=== PATIENT | male | born 1955 | race Caucasian/White ===

== ENCOUNTER 2018-09-27 19:59 | Inpatient (IN) | payer MEDICARE, MEDICAID ==
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
[2018-09-27 20:56] LABS: % BASOPHILS 0.1 % (0.0-2.0); % EOSINOPHILS 4.9 % (0.0-5.0); % MONOCYTES 9.6 % (2.0-10.0); % NEUTROPHILS 60.4 % (40.0-80.0); EOSINOPHILE ABSOLUTE 0.4 Th/cmm (0.1-0.4); HEMATOCRIT 41.9 % (41.0-60); HEMOGLOBIN 13.9 gm/dL (12-16); LYMPHOCYTE ABSOLUTE 1.8 Th/cmm (1.5-3.0); MEAN CORPUSCULAR HEMOGLOBIN 30.2 pg (26.0-30.0); MEAN CORPUSCULAR HGB CONC 33.2 pg (28.0-36.0); MEAN PLATELET VOLUME 6.9 fl; MONOCYTE ABSOLUTE 0.7 Th/cmm (0.3-1.0); NEUTROPHILE ABSOLUTE 4.4 Th/cmm (1.8-8.0); PLATELET COUNT 235 Th/cmm (150-400); RED BLOOD COUNT 4.61 Mil/cmm (4.30-5.70); RED CELL DISTRIBUTION WIDTH 13.4 % (11.5-20.0); WHITE BLOOD COUNT 7.3 Th/cmm (4.8-10.8)
[2018-09-27 21:09] LABS: ALB/GLOB RATIO 1.4 (1.0-1.8); ALBUMIN 4.1 gm/dL (4.2-5.5); ALKALINE PHOSPHATASE 70 U/L (34-104); ANION GAP 8.9 (7.0-16.0); BILIRUBIN,TOTAL 0.2 mg/dL (0.3-1.0); BUN - UREA NITROGEN 18 mg/dL (7-25); CALCIUM SERUM 9.4 mg/dL (8.6-10.3); CARBON DIOXIDE 28.4 mEq/L (21.0-31.0); CHLORIDE 103 mEq/L (98-107); GFR AFRICAN-AMERICAN > 60.0 ml/min (>90); GFR NON AFRICAN-AMERICAN > 60.0 ml/min; GLUCOSE 100 mg/dL (70-105); POTASSIUM SERUM 3.3 mEq/L (3.5-5.1); SGOT 9 U/L (13-39); SGPT/ALT 16 U/L (7-52); SODIUM SERUM 137 mEq/L (136-145); TOTAL PROTEIN,SERUM 7.1 gm/dL (6.0-8.3)
[2018-09-27] MEDS ORDERED: Potassium Chloride 20 mEq ER Tab PO ONE ×2 (21:27→22:24)
[2018-09-28 01:11] VITALS: BP 133/70
[2018-09-28] MEDS: Escitalopram Oxalate 5 mg Tab PO SCH (08:32)
--- NOTE | 2018-09-28 08:36 | Diagnostic Imaging Report ---
CHEST X-RAY: AP view INDICATION: Shortness of breath COMPARISON: None FINDINGS: There is elevation of the right hemidiaphragm interposed loops of bowel increased right basal lung markings. No focal consolidation or effusion. Heart size is normal. Osseous structures are intact. IMPRESSION: Elevation of the right hemidiaphragm increased right basal lung markings favoring atelectatic changes. No focal consolidation identified. If indicated PA and lateral views may be obtained for further assessment.
[2018-09-28 14:26] LABS: CHOLESTEROL 142 mg/dL (<200); HDL -HIGH DENSITY LIPOPROTEIN 44 mg/dL (23-92); TRIGLYCERIDES 114 mg/dL (<150)
[2018-09-28] MEDS ORDERED: LITHIUM CARBONATE PO SCH (21:00)
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
[2018-09-29] MEDS: Escitalopram Oxalate 5 mg Tab PO SCH (08:16)
[2018-09-29] MEDS ORDERED: FISH OIL PO SCH (09:00)
[2018-09-29] MEDS ORDERED: DHA PO SCH (09:00)
[2018-09-29] MEDS ORDERED: EPA PO SCH (09:00)
[2018-09-29] MEDS ORDERED: OMEGA PO SCH (09:00)
[2018-09-29] MEDS ORDERED: Haloperidol Lactate 5 mg/mL 1mL Vial IM ONE (12:50)
[2018-09-29] MEDS ORDERED: Haloperidol Lactate 5 mg/mL 1mL Vial ONE (12:54)
--- NOTE | 2018-09-29 13:44 | History and Physical ---
History of Present Illness - HPI Chief Complaint: agitation HPI: This is a 62-year old male admitted from snf due to agitation. Vital Signs: Last Vital Signs Temp 98.2 F 09/29/18 06:32 Pulse 84 09/29/18 06:32 Resp 20 09/29/18 06:32 BP 99/66 09/29/18 06:32 Pulse Ox 98 09/29/18 06:32 Past Medical History Other History: Dyslipidemia, Hypothyroidism Family Medical History - Family Member Mother History Unknown: Yes Social History Smoke: No Alcohol: None Drugs: None Lives: Jail - Medications Home Medications: Home Medication Medication Instructions Recorded Type Atorvastatin Calcium [Lipitor] 10 mg PO HS 09/27/18 History Docusate Sodium [Colace] 250 mg PO DAILY 09/27/18 History Escitalopram Oxalate [Lexapro] 5 mg PO DAILY 09/27/18 History Levothyroxine [Synthroid] 0.112 mg PO QDAC 09/27/18 History [place] Carbonate [[place] 750 mg PO HS 09/27/18 History Carbonate ER] Multivitamin with Minerals 1 tab PO DAILY 09/27/18 History [Multivitamins with Minerals] OLANZapine [ZyPREXA] 10 mg PO TID 09/27/18 History [place]-3/Dha/Epa/Fish Oil [Fish Oil 500 mg PO DAILY 09/27/18 History 500 mg Softgel] risperiDONE [RisperDAL] 3 mg PO BID 09/27/18 History - Allergies Allergies/Adverse Reactions: Allergies Allergy/AdvReac Type Severity Reaction Status Date / Time No Known Allergies Allergy Verified 09/27/18 20:12 Review of Systems - Review of Systems Constitutional: Report: No Significant Eyes: Report: No Significant Respiratory: Report: No Significant Cardiovascular: Report: No Significant Neurological: Report: No Significant Physical Exam - Physical Exam HEENT: Report: Ears Nose Throat within normal limits Neck: Report: Within normal limits Cardiovascular Systems: Report: +s1/s2 noted, Regular, Rate and Rhythm Respiratory: Report: Breath Sounds are within normal limits, Clear to Auscultation of lung ro Abdomen: Report: Non-tender to palpation Skin: Report: Color of skin is within normal limits, Warm, Dry - Lab Results All Lab Results last 24 hours: Laboratory Results - last 24 hr 09/28/18 06:10 Triglycerides 114 Cholesterol 142 LDL Cholesterol Direct 87 HDL Cholesterol 44 - Assessment Assessment: Dyslipidemia Hypothyroidism psychosis - Plan Plan: fall precautions continue snf meds continue current plan of care
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
[2018-09-29] MEDS: Fish Oil 1,000 MG SGL PO SCH (16:17)
[2018-09-29] MEDS: Multivitamin w/ Minerals Tab PO SCH (16:17)
[2018-09-29] MEDS: Atorvastatin Calcium 10 MG TAB PO SCH (21:00)
--- NOTE | 2018-09-30 05:27 | Progress Notes ---
DATE: SUBJECTIVE: Chart reviewed and the patient interviewed. Also discussed the patient's condition with the staff and reviewed records and labs. The patient is still easily agitated and is still in irritable mood. The patient also is still angry. The patient also is still suspicious and paranoid and isolative at times. He also still has episodes of aggression. Otherwise, the patient is compliant with taking medications with no side effects of medications. ASSESSMENT: The patient is still psychotic and agitated. TREATMENT PLAN: Continue to monitor behavior and condition closely. Also, continue to work on adjusting psychotropic medications and followup. JOB# [id number]
[2018-09-30] MEDS: Levothyroxine 0.112 Mg Tab PO SCH (06:47)
[2018-09-30] MEDS: Escitalopram Oxalate 5 mg Tab PO SCH (08:35)
[2018-09-30] MEDS: Fish Oil 1,000 MG SGL PO SCH (08:36)
[2018-09-30] MEDS: Multivitamin w/ Minerals Tab PO SCH (08:36)
--- NOTE | 2018-09-30 14:02 | Internal Medicine Prog Note ---
Internal Medicine Subjective - Subjective Patient seen and examined:: chart reviewed Patient is:: awake, confused Per staff patient has:: no adverse event Internal Medicine Objective - Results Result Diagrams: 09/27/18 20:50 09/27/18 20:50 Recent Labs: Laboratory Last Values WBC 7.3 Th/cmm (4.8-10.8) 09/27/18 20:50 RBC 4.61 Mil/cmm (4.30-5.70) 09/27/18 20:50 Hgb 13.9 gm/dL (12-16) 09/27/18 20:50 Hct 41.9 % (41.0-60) 09/27/18 20:50 MCV 91.0 fl (80-99) 09/27/18 20:50 MCH 30.2 pg (26.0-30.0) H 09/27/18 20:50 MCHC Differential 33.2 pg (28.0-36.0) 09/27/18 20:50 RDW 13.4 % (11.5-20.0) 09/27/18 20:50 Plt Count 235 Th/cmm (150-400) 09/27/18 20:50 MPV 6.9 fl 09/27/18 20:50 Neutrophils % 60.4 % (40.0-80.0) 09/27/18 20:50 Lymphocytes % 25.0 % (20.0-50.0) 09/27/18 20:50 Monocytes % 9.6 % (2.0-10.0) 09/27/18 20:50 Eosinophils % 4.9 % (0.0-5.0) 09/27/18 20:50 Basophils % 0.1 % (0.0-2.0) 09/27/18 20:50 Sodium 137 mEq/L (136-145) 09/27/18 20:50 Potassium 3.3 mEq/L (3.5-5.1) L 09/27/18 20:50 Chloride 103 mEq/L (98-107) 09/27/18 20:50 Carbon Dioxide 28.4 mEq/L (21.0-31.0) 09/27/18 20:50 Anion Gap 8.9 (7.0-16.0) 09/27/18 20:50 BUN 18 mg/dL (7-25) 09/27/18 20:50 Creatinine 1.0 mg/dL (0.7-1.3) 09/27/18 20:50 Est GFR ( Amer) > 60.0 ml/min (>90) 09/27/18 20:50 Est GFR (Non-Af Amer) > 60.0 ml/min 09/27/18 20:50 BUN/Creatinine Ratio 18.0 09/27/18 20:50 Glucose 100 mg/dL (70-105) 09/27/18 20:50 Calcium 9.4 mg/dL (8.6-10.3) 09/27/18 20:50 Total Bilirubin 0.2 mg/dL (0.3-1.0) L 09/27/18 20:50 AST 9 U/L (13-39) L 09/27/18 20:50 ALT 16 U/L (7-52) 09/27/18 20:50 Alkaline Phosphatase 70 U/L (34-104) 09/27/18 20:50 Troponin I < 0.01 ng/mL (0.01-0.05) L 09/27/18 20:50 B-Natriuretic Peptide 7.7 pg/mL (5.0-100.0) 09/27/18 20:50 Total Protein 7.1 gm/dL (6.0-8.3) 09/27/18 20:50 Albumin 4.1 gm/dL (4.2-5.5) L 09/27/18 20:50 Globulin 3.0 gm/dL 09/27/18 20:50 Albumin/Globulin Ratio 1.4 (1.0-1.8) 09/27/18 20:50 Triglycerides 114 mg/dL (<150) 09/28/18 06:10 Cholesterol 142 mg/dL (<200) 09/28/18 06:10 LDL Cholesterol Direct 87 mg/dL (75-193) 09/28/18 06:10 HDL Cholesterol 44 mg/dL (23-92) 09/28/18 06:10 TSH 2.17 uIU/ml (0.34-5.60) 09/27/18 20:50 [place] 0.62 mmol/L (0.5-1.0) 09/28/18 06:10 - Physical Exam Vitals and I&O: Vital Signs Temp 97.2 F 11/09/18 06:50 Pulse 92 09/30/18 06:50 Resp 20 09/30/18 06:50 BP 123/69 09/30/18 06:50 Pulse Ox 96 09/30/18 06:50 Intake & Output 09/29/18 09/30/18 09/30/18 18:59 06:59 18:59 Intake Total 120 120 Balance 120 120 Intake: Oral 120 120 Other: # Voids 3 2 # Bowel Movements 1 Active Medications: Current Medications Atorvastatin Calcium (Lipitor) 10 mg PO HS [facility]; Protocol Stop: 11/28/18 20:59 Last Admin: 09/29/18 21:00 Dose: 10 mg Docusate Sodium (Colace) 250 mg PO DAILY [facility] Stop: 11/28/18 08:59 Last Admin: 09/30/18 08:35 Dose: 250 mg Escitalopram Oxalate (Lexapro) 5 mg PO DAILY [facility]; Protocol Stop: 11/27/18 08:59 Last Admin: 09/30/18 08:35 Dose: 5 mg Fish Oil ([place] 3) 1,000 mg PO DAILY [facility] Stop: 11/28/18 08:59 Last Admin: 09/30/18 08:36 Dose: 1,000 mg Levothyroxine Sodium (Synthroid) 0.112 mg PO QDAC [facility] Stop: 11/29/18 07:29 Last Admin: 09/30/18 06:47 Dose: 0.112 mg [place] Carbonate (Eskalith) 300 mg PO BID [facility]; Protocol Stop: 11/27/18 08:59 Last Admin: 09/30/18 08:36 Dose: 300 mg Lorazepam (Ativan) 0.5 mg PO Q4HR PRN; Protocol PRN Reason: Anxiety Stop: 10/27/18 23:29 Olanzapine (Zyprexa) 10 mg PO TID [facility]; Protocol Stop: 11/27/18 08:59 Last Admin: 09/30/18 13:35 Dose: 10 mg Risperidone (Risperdal) 3 mg PO BID [facility]; Protocol Stop: 11/27/18 08:59 Last Admin: 09/30/18 08:36 Dose: 3 mg Zolpidem Tartrate (Ambien) 5 mg PO HS PRN PRN Reason: Insomnia Stop: 11/26/18 23:29 General: alert HEENT: NC/AT Neck: Supple Lungs: CTAB Abdomen: soft, non-tender Extremities: clear Neurological: no change Internal Medicine Assmt/Plan - Assessment Assessment: hypokalemia hyperlipidemia hypothyrodism depression psychosis - Plan Plan: as per order sheet as per psych will monitor
[2018-09-30] MEDS: Atorvastatin Calcium 10 MG TAB PO SCH (20:34)
[2018-10-01] MEDS: Levothyroxine 0.112 Mg Tab PO SCH (06:37)
[2018-10-01] MEDS: Multivitamin w/ Minerals Tab PO SCH (08:55)
[2018-10-01] MEDS: Fish Oil 1,000 MG SGL PO SCH (08:55)
[2018-10-01] MEDS: Escitalopram Oxalate 5 mg Tab PO SCH (08:56)
--- NOTE | 2018-10-01 17:24 | Progress Notes ---
DATE: 10/01/2018 SUBJECTIVE: The patient was seen in his room. The patient is awake, but confused currently guarded, easily gets agitated. Episodes of behavioral outbursts. Otherwise, the patient is currently in no acute distress. OBJECTIVE: VITAL SIGNS: Temperature 98.4, heart rate 74, blood pressure 132/70, respirations 20, and 98% on room air. HEENT: Head is atraumatic and normocephalic. Eyes: Bilateral conjunctivae are clear. Bilateral pupils are equally round and reactive. NECK: Supple. No JVD. CARDIOVASCULAR: S1 and S2, without murmur. PULMONARY: Clear to auscultation. GASTROINTESTINAL: Soft and nontender without guarding. Positive bowel sounds. MUSCULOSKELETAL: No clubbing. No cyanosis noted. ASSESSMENT: 1. Schizoaffective disorder. 2. Hyperlipidemia. 3. Osteoarthritis. 4. Hypothyroidism. PLAN: We will keep the patient inpatient Psychiatric Unit. We will follow up with the psychiatrist to monitor the patient's condition and behavior. Treatment plans were discussed with the patient's nurse. Treatment plans were discussed with Dr. Arango. JOB# [id number]
[2018-10-01] MEDS: Atorvastatin Calcium 10 MG TAB PO SCH (20:25)
--- NOTE | 2018-10-02 05:48 | Progress Notes ---
DATE: 09/30/2018 SUBJECTIVE: Chart reviewed and the patient interviewed. Also discussed the patient's condition with the staff and reviewed records and labs. The patient is still restless and is still agitated. The patient also is still paranoid and suspicious and he is still having episodes of aggression over the staff. Also, still has mood swings. The patient also has difficulty following any of staff directions. On the other hand, the patient continued to comply with taking his medications with no side effects of medications. ASSESSMENT: The patient is still agitated and has mood swings and psychotic. TREATMENT PLAN: Continue to monitor medications and continue to monitor lithium. Also, we will continue Lexapro 5 mg every day. Also, working on his mood swings and irritability and the patient is taking Zyprexa 10 mg 3 times a day, which is above recommended normal level, but at the same time with agitated patient like that the patient needs close monitoring. The patient still needs a lot of redirections and needs a lot of close monitoring. JOB# [id number]
[2018-10-02] MEDS: Fish Oil 1,000 MG SGL PO SCH (08:12)
[2018-10-02] MEDS: Levothyroxine 0.112 Mg Tab PO SCH (08:12)
[2018-10-02] MEDS: Multivitamin w/ Minerals Tab PO SCH (08:12)
[2018-10-02] MEDS: Escitalopram Oxalate 5 mg Tab PO SCH (08:13)
--- NOTE | 2018-10-02 11:22 | Internal Medicine Prog Note ---
Internal Medicine Subjective - Subjective Patient seen and examined:: chart reviewed Patient is:: awake, confused, other (still agitated, irritable ) Per staff patient has:: no adverse event Internal Medicine Objective - Results Result Diagrams: 09/27/18 20:50 09/27/18 20:50 Recent Labs: Laboratory Last Values WBC 7.3 Th/cmm (4.8-10.8) 09/27/18 20:50 RBC 4.61 Mil/cmm (4.30-5.70) 09/27/18 20:50 Hgb 13.9 gm/dL (12-16) 09/27/18 20:50 Hct 41.9 % (41.0-60) 09/27/18 20:50 MCV 91.0 fl (80-99) 09/27/18 20:50 MCH 30.2 pg (26.0-30.0) H 09/27/18 20:50 MCHC Differential 33.2 pg (28.0-36.0) 09/27/18 20:50 RDW 13.4 % (11.5-20.0) 09/27/18 20:50 Plt Count 235 Th/cmm (150-400) 09/27/18 20:50 MPV 6.9 fl 09/27/18 20:50 Neutrophils % 60.4 % (40.0-80.0) 09/27/18 20:50 Lymphocytes % 25.0 % (20.0-50.0) 09/27/18 20:50 Monocytes % 9.6 % (2.0-10.0) 09/27/18 20:50 Eosinophils % 4.9 % (0.0-5.0) 09/27/18 20:50 Basophils % 0.1 % (0.0-2.0) 09/27/18 20:50 Sodium 137 mEq/L (136-145) 09/27/18 20:50 Potassium 3.3 mEq/L (3.5-5.1) L 09/27/18 20:50 Chloride 103 mEq/L (98-107) 09/27/18 20:50 Carbon Dioxide 28.4 mEq/L (21.0-31.0) 09/27/18 20:50 Anion Gap 8.9 (7.0-16.0) 09/27/18 20:50 BUN 18 mg/dL (7-25) 09/27/18 20:50 Creatinine 1.0 mg/dL (0.7-1.3) 09/27/18 20:50 Est GFR ( Amer) > 60.0 ml/min (>90) 09/27/18 20:50 Est GFR (Non-Af Amer) > 60.0 ml/min 09/27/18 20:50 BUN/Creatinine Ratio 18.0 09/27/18 20:50 Glucose 100 mg/dL (70-105) 09/27/18 20:50 Calcium 9.4 mg/dL (8.6-10.3) 09/27/18 20:50 Total Bilirubin 0.2 mg/dL (0.3-1.0) L 09/27/18 20:50 AST 9 U/L (13-39) L 09/27/18 20:50 ALT 16 U/L (7-52) 09/27/18 20:50 Alkaline Phosphatase 70 U/L (34-104) 09/27/18 20:50 Troponin I < 0.01 ng/mL (0.01-0.05) L 09/27/18 20:50 B-Natriuretic Peptide 7.7 pg/mL (5.0-100.0) 09/27/18 20:50 Total Protein 7.1 gm/dL (6.0-8.3) 09/27/18 20:50 Albumin 4.1 gm/dL (4.2-5.5) L 09/27/18 20:50 Globulin 3.0 gm/dL 09/27/18 20:50 Albumin/Globulin Ratio 1.4 (1.0-1.8) 09/27/18 20:50 Triglycerides 114 mg/dL (<150) 09/28/18 06:10 Cholesterol 142 mg/dL (<200) 09/28/18 06:10 LDL Cholesterol Direct 87 mg/dL (75-193) 09/28/18 06:10 HDL Cholesterol 44 mg/dL (23-92) 09/28/18 06:10 TSH 2.17 uIU/ml (0.34-5.60) 09/27/18 20:50 [place] 0.62 mmol/L (0.5-1.0) 09/28/18 06:10 - Physical Exam Vitals and I&O: Vital Signs Temp 98.6 F 10/02/18 06:42 Pulse 109 10/02/18 06:42 Resp 20 10/02/18 06:42 BP 112/68 10/02/18 06:42 Pulse Ox 98 10/02/18 06:42 Intake & Output 10/01/18 10/02/18 10/02/18 18:59 06:59 18:59 Intake Total 240 Balance 240 Intake: Oral 240 Other: # Voids 1 Active Medications: Current Medications Atorvastatin Calcium (Lipitor) 10 mg PO HS [facility]; Protocol Stop: 11/28/18 20:59 Last Admin: 10/01/18 20:25 Dose: 10 mg Docusate Sodium (Colace) 250 mg PO DAILY [facility] Stop: 11/28/18 08:59 Last Admin: 10/02/18 08:13 Dose: 250 mg Escitalopram Oxalate (Lexapro) 5 mg PO DAILY [facility]; Protocol Stop: 11/27/18 08:59 Last Admin: 10/02/18 08:13 Dose: 5 mg Fish Oil ([place] 3) 1,000 mg PO DAILY [facility] Stop: 11/28/18 08:59 Last Admin: 10/02/18 08:12 Dose: 1,000 mg Levothyroxine Sodium (Synthroid) 0.112 mg PO QDAC [facility] Stop: 11/29/18 07:29 Last Admin: 10/02/18 08:12 Dose: 0.112 mg [place] Carbonate (Eskalith) 300 mg PO BID [facility]; Protocol Stop: 11/27/18 08:59 Last Admin: 10/02/18 08:13 Dose: 300 mg Lorazepam (Ativan) 0.5 mg PO Q4HR PRN; Protocol PRN Reason: Anxiety Stop: 10/27/18 23:29 Olanzapine (Zyprexa) 10 mg PO TID [facility]; Protocol Stop: 11/27/18 08:59 Last Admin: 10/02/18 08:13 Dose: 10 mg Risperidone (Risperdal) 3 mg PO BID [facility]; Protocol Stop: 11/27/18 08:59 Last Admin: 10/02/18 08:12 Dose: 3 mg Zolpidem Tartrate (Ambien) 5 mg PO HS PRN PRN Reason: Insomnia Stop: 11/26/18 23:29 General: alert HEENT: NC/AT Neck: Supple Lungs: CTAB Abdomen: soft, non-tender Extremities: clear Neurological: no change Internal Medicine Assmt/Plan - Assessment Assessment: hypokalemia hyperlipidemia hypothyrodism depression psychosis - Plan Plan: as per order sheet as per psych will monitor Nutritional Asmnt/Malnutr-PDOC - Dietary Evaluation Malnutrition Findings (Please click <Entered> for more info): Nutritional Asmnt/Malnutrition Start: 09/30/18 14: 22 Text: Status: Complete Freq: Protocol: Document 09/30/18 14:22 CAL (Rec: 09/30/18 14:45 [email or web address]) Nutritional Asmnt/Malnutrition Patient General Information Nutritional Screening Moderate Risk Diagnosis psychosis, schizophrenia Pertinent Medical Hx/Surgical Hx dyslipidemia, hypothyroidism, depression, schizophrenia Subjective Information Spoke w/ pt who states his food is good and has no preferences. Pt was alert and oriented. Nursing noted PO intake: 100%. Current Diet Order/ Nutrition Support regular, low cholesterol Pertinent Medications lipitor, colace, omega 3, synthroid, risperdal Pertinent Labs 13/05: K 3.3, Alb 4.1, glucose 100 Nutritional Hx/Data Height 1.63 m Height (Calculated Centimeters) 162.6 Current Weight (lbs) 68.039 kg Weight (Calculated Kilograms) 68.0 Weight (Calculated Grams) 32766.9 [place] Body Weight 130 lb Body Mass Index (BMI) 25.7 Weight Status Overweight GI Symptoms GI Symptoms None Last BM 09/29 Difficult in: None Food Allergies No Skin Integrity/Comment: intact, seth 20 Current %PO Good (75-100%) Estimated Nutritional Goals BEE in Kcals: Using Current wt Calories/Kcals/Kg 23-27 Kcals Calculated 2252-3818 Protein: Using Current wt Protein g/k.8 Protein Calculated 68 g Fluid: ml 2637-9365 (1 ml/kcal) Nutritional Problem No current Nutrition Prob Problem no nutrition dx at this time Malnutrition Alert Is there a minimum of two criteria No selected? Query Text:Check all the applicable criteria. A minimum of two criteria are recommended for diagnosis of either severe or non-severe malnutrition. Malnutrition Related to Morbid Obesity Malnutrition related to morbid obesity No Intervention/Recommendation Comments 1. Continue with regular, low cholesterol diet as ordered 2. Monitor PO intake, wt, labs and skin integrity 3. F/U as low risk in 7 days, 10/07 Expected Outcomes/Goals Expected Outcomes/Goals 1. PO intake to meet at least 75% of all meals 2. Wt stability, skin to remain intact, and nutrition related labs to approach normal limits Reviewed by Lucy Quintanilla RD
--- NOTE | 2018-10-02 13:19 | Progress Notes ---
DATE: 10/01/2018 SUBJECTIVE: The patient was seen and evaluated. The patient's chart reviewed. Covering for Dr. Brand. IDENTIFYING DATA: A 62-year-old male who was brought in here from [facility] after the patient presenting more irritable, agitated, was exhibiting sexually inappropriate behavior, and pacing. The nursing staff reported the patient continues to be easily preoccupied and hypersexual and upon approach he at times is easily agitated. Today on [id number] evaluation, the patient reports everything is fine and refuses to be interviewed. CURRENT MEDICATIONS: Review include Lexapro 5 mg a day, levothyroxine, lithium at 300 p.o. b.i.d., olanzapine 10 mg t.i.d., risperidone 3 mg b.i.d. He denies any complications or side effects of medications. PLAN: The patient continues to be hypersexual, on 2 different antipsychotics with poor efficacy. We will continue with primary psychiatrist's treatment plan and goals and obtain more collateral and baseline information in regard to his treatments, especially with the 2 antipsychotics. JOB# [id number]
[2018-10-02] MEDS: Atorvastatin Calcium 10 MG TAB PO SCH (21:00)
--- NOTE | 2018-10-03 06:07 | Progress Notes ---
DATE: 10/02/2018 SUBJECTIVE: The patient was seen and evaluated. The patient's chart reviewed. Today on [id number] evaluation, the patient is being easily irritable and easily agitated, had a lot of mood swings and nursing staff reports that the patient continues to be hypersexual, although compliant with medications and denies side effects of medications. ASSESSMENT AND PLAN: History of easily agitated with mood swings and ____. We will continue with the current medication regimen of Zyprexa and Lexapro to target the patient's ongoing labile and irritable state and to continue to targeting the patient's disorganized state. JOB# [id number]
[2018-10-03] MEDS: Levothyroxine 0.112 Mg Tab PO SCH (06:53)
[2018-10-03] MEDS: Multivitamin w/ Minerals Tab PO SCH (08:57)
[2018-10-03] MEDS: Escitalopram Oxalate 5 mg Tab PO SCH (08:57)
[2018-10-03] MEDS: Fish Oil 1,000 MG SGL PO SCH (08:57)
--- NOTE | 2018-10-03 10:28 | Internal Medicine Prog Note ---
Internal Medicine Subjective - Subjective Patient seen and examined:: chart reviewed Patient is:: awake, confused, other (irritable ) Per staff patient has:: no adverse event Internal Medicine Objective - Results Result Diagrams: 09/27/18 20:50 09/27/18 20:50 Recent Labs: Laboratory Last Values WBC 7.3 Th/cmm (4.8-10.8) 09/27/18 20:50 RBC 4.61 Mil/cmm (4.30-5.70) 09/27/18 20:50 Hgb 13.9 gm/dL (12-16) 09/27/18 20:50 Hct 41.9 % (41.0-60) 09/27/18 20:50 MCV 91.0 fl (80-99) 09/27/18 20:50 MCH 30.2 pg (26.0-30.0) H 09/27/18 20:50 MCHC Differential 33.2 pg (28.0-36.0) 09/27/18 20:50 RDW 13.4 % (11.5-20.0) 09/27/18 20:50 Plt Count 235 Th/cmm (150-400) 09/27/18 20:50 MPV 6.9 fl 09/27/18 20:50 Neutrophils % 60.4 % (40.0-80.0) 09/27/18 20:50 Lymphocytes % 25.0 % (20.0-50.0) 09/27/18 20:50 Monocytes % 9.6 % (2.0-10.0) 09/27/18 20:50 Eosinophils % 4.9 % (0.0-5.0) 09/27/18 20:50 Basophils % 0.1 % (0.0-2.0) 09/27/18 20:50 Sodium 137 mEq/L (136-145) 09/27/18 20:50 Potassium 3.3 mEq/L (3.5-5.1) L 09/27/18 20:50 Chloride 103 mEq/L (98-107) 09/27/18 20:50 Carbon Dioxide 28.4 mEq/L (21.0-31.0) 09/27/18 20:50 Anion Gap 8.9 (7.0-16.0) 09/27/18 20:50 BUN 18 mg/dL (7-25) 09/27/18 20:50 Creatinine 1.0 mg/dL (0.7-1.3) 09/27/18 20:50 Est GFR ( Amer) > 60.0 ml/min (>90) 09/27/18 20:50 Est GFR (Non-Af Amer) > 60.0 ml/min 09/27/18 20:50 BUN/Creatinine Ratio 18.0 09/27/18 20:50 Glucose 100 mg/dL (70-105) 09/27/18 20:50 Calcium 9.4 mg/dL (8.6-10.3) 09/27/18 20:50 Total Bilirubin 0.2 mg/dL (0.3-1.0) L 09/27/18 20:50 AST 9 U/L (13-39) L 09/27/18 20:50 ALT 16 U/L (7-52) 09/27/18 20:50 Alkaline Phosphatase 70 U/L (34-104) 09/27/18 20:50 Troponin I < 0.01 ng/mL (0.01-0.05) L 09/27/18 20:50 B-Natriuretic Peptide 7.7 pg/mL (5.0-100.0) 09/27/18 20:50 Total Protein 7.1 gm/dL (6.0-8.3) 09/27/18 20:50 Albumin 4.1 gm/dL (4.2-5.5) L 09/27/18 20:50 Globulin 3.0 gm/dL 09/27/18 20:50 Albumin/Globulin Ratio 1.4 (1.0-1.8) 09/27/18 20:50 Triglycerides 114 mg/dL (<150) 09/28/18 06:10 Cholesterol 142 mg/dL (<200) 09/28/18 06:10 LDL Cholesterol Direct 87 mg/dL (75-193) 09/28/18 06:10 HDL Cholesterol 44 mg/dL (23-92) 09/28/18 06:10 TSH 2.17 uIU/ml (0.34-5.60) 09/27/18 20:50 [place] 0.62 mmol/L (0.5-1.0) 09/28/18 06:10 - Physical Exam Vitals and I&O: Vital Signs Temp 98.1 F 10/03/18 06:48 Pulse 71 10/03/18 06:48 Resp 20 10/03/18 06:48 BP 115/74 10/03/18 06:48 Pulse Ox 97 10/03/18 06:48 Intake & Output 10/02/18 10/03/18 10/03/18 18:59 06:59 18:59 Intake Total 240 Balance 240 Intake: Oral 240 Other: # Voids 3 # Bowel Movements 1 0 Active Medications: Current Medications Atorvastatin Calcium (Lipitor) 10 mg PO HS [facility]; Protocol Stop: 11/28/18 20:59 Last Admin: 10/02/18 21:00 Dose: 10 mg Docusate Sodium (Colace) 250 mg PO DAILY [facility] Stop: 11/28/18 08:59 Last Admin: 10/03/18 08:57 Dose: 250 mg Escitalopram Oxalate (Lexapro) 5 mg PO DAILY [facility]; Protocol Stop: 11/27/18 08:59 Last Admin: 10/03/18 08:57 Dose: 5 mg Fish Oil ([place] 3) 1,000 mg PO DAILY [facility] Stop: 11/28/18 08:59 Last Admin: 10/03/18 08:57 Dose: 1,000 mg Levothyroxine Sodium (Synthroid) 0.112 mg PO QDAC [facility] Stop: 11/29/18 07:29 Last Admin: 10/03/18 06:53 Dose: 0.112 mg [place] Carbonate (Eskalith) 300 mg PO BID [facility]; Protocol Stop: 11/27/18 08:59 Last Admin: 10/03/18 08:58 Dose: 300 mg Lorazepam (Ativan) 0.5 mg PO Q4HR PRN; Protocol PRN Reason: Anxiety Stop: 10/27/18 23:29 Last Admin: 10/03/18 08:58 Dose: 0.5 mg Olanzapine (Zyprexa) 10 mg PO TID [facility]; Protocol Stop: 11/27/18 08:59 Last Admin: 10/03/18 08:57 Dose: 10 mg Risperidone (Risperdal) 3 mg PO BID [facility]; Protocol Stop: 11/27/18 08:59 Last Admin: 10/03/18 08:57 Dose: 3 mg Zolpidem Tartrate (Ambien) 5 mg PO HS PRN PRN Reason: Insomnia Stop: 11/26/18 23:29 General: alert HEENT: NC/AT Neck: Supple Lungs: CTAB Abdomen: soft, non-tender Extremities: clear Neurological: no change Internal Medicine Assmt/Plan - Assessment Assessment: hypokalemia hyperlipidemia hypothyrodism depression psychosis - Plan Plan: as per order sheet as per psych will monitor Nutritional Asmnt/Malnutr-PDOC - Dietary Evaluation Malnutrition Findings (Please click <Entered> for more info): Nutritional Asmnt/Malnutrition Start: 09/30/18 14: 22 Text: Status: Complete Freq: Protocol: Document 09/30/18 14:22 ROSENDAROXANA (Rec: 09/30/18 14:45 [email or web address]) Nutritional Asmnt/Malnutrition Patient General Information Nutritional Screening Moderate Risk Diagnosis psychosis, schizophrenia Pertinent Medical Hx/Surgical Hx dyslipidemia, hypothyroidism, depression, schizophrenia Subjective Information Spoke w/ pt who states his food is good and has no preferences. Pt was alert and oriented. Nursing noted PO intake: 100%. Current Diet Order/ Nutrition Support regular, low cholesterol Pertinent Medications lipitor, colace, omega 3, synthroid, risperdal Pertinent Labs 13/05: K 3.3, Alb 4.1, glucose 100 Nutritional Hx/Data Height 1.63 m Height (Calculated Centimeters) 162.6 Current Weight (lbs) 68.039 kg Weight (Calculated Kilograms) 68.0 Weight (Calculated Grams) 66956.9 [place] Body Weight 130 lb Body Mass Index (BMI) 25.7 Weight Status Overweight GI Symptoms GI Symptoms None Last BM 09/29 Difficult in: None Food Allergies No Skin Integrity/Comment: intact, seth 20 Current %PO Good (75-100%) Estimated Nutritional Goals BEE in Kcals: Using Current wt Calories/Kcals/Kg 23-27 Kcals Calculated 3624-8204 Protein: Using Current wt Protein g/k.8 Protein Calculated 68 g Fluid: ml 0595-0319 (1 ml/kcal) Nutritional Problem No current Nutrition Prob Problem no nutrition dx at this time Malnutrition Alert Is there a minimum of two criteria No selected? Query Text:Check all the applicable criteria. A minimum of two criteria are recommended for diagnosis of either severe or non-severe malnutrition. Malnutrition Related to Morbid Obesity Malnutrition related to morbid obesity No Intervention/Recommendation Comments 1. Continue with regular, low cholesterol diet as ordered 2. Monitor PO intake, wt, labs and skin integrity 3. F/U as low risk in 7 days, 10/07 Expected Outcomes/Goals Expected Outcomes/Goals 1. PO intake to meet at least 75% of all meals 2. Wt stability, skin to remain intact, and nutrition related labs to approach normal limits Reviewed by Lucy Quintanilla RD
[2018-10-03] MEDS: Atorvastatin Calcium 10 MG TAB PO SCH (20:43)
--- NOTE | 2018-10-04 06:39 | Progress Notes ---
DATE: SUBJECTIVE: Chart reviewed and the patient interviewed. Also discussed the patient's condition with the staff and reviewed records and labs. The patient is still in angry and in irritable mood. The patient also is still easily agitated. The patient also is restless and he still has difficulty with his mood. Otherwise, decreased sexual inappropriate behavior and the patient is easier to follow directions. ASSESSMENT: The patient is calmer, but he still has difficulty with his mood. TREATMENT PLAN: Continue monitoring his behavior and his condition closely and also continue to work on his irritability and continue to follow up. JOB# [id number]
[2018-10-04] MEDS: Levothyroxine 0.112 Mg Tab PO SCH (06:47)
[2018-10-04] MEDS: Fish Oil 1,000 MG SGL PO SCH (08:58)
[2018-10-04] MEDS: Multivitamin w/ Minerals Tab PO SCH (08:58)
[2018-10-04] MEDS: Escitalopram Oxalate 5 mg Tab PO SCH (08:58)
[2018-10-04] MEDS: Triple Antibiotic 0.94 gm Pkt TP SCH (08:59)
--- NOTE | 2018-10-04 12:44 | Internal Medicine Prog Note ---
Internal Medicine Subjective - Subjective Service Date: 10/04/18 Patient is:: awake, confused, other (irritable ) Per staff patient has:: no adverse event Internal Medicine Objective - Results Result Diagrams: 09/27/18 20:50 09/27/18 20:50 Recent Labs: Laboratory Last Values WBC 7.3 Th/cmm (4.8-10.8) 09/27/18 20:50 RBC 4.61 Mil/cmm (4.30-5.70) 09/27/18 20:50 Hgb 13.9 gm/dL (12-16) 09/27/18 20:50 Hct 41.9 % (41.0-60) 09/27/18 20:50 MCV 91.0 fl (80-99) 09/27/18 20:50 MCH 30.2 pg (26.0-30.0) H 09/27/18 20:50 MCHC Differential 33.2 pg (28.0-36.0) 09/27/18 20:50 RDW 13.4 % (11.5-20.0) 09/27/18 20:50 Plt Count 235 Th/cmm (150-400) 09/27/18 20:50 MPV 6.9 fl 09/27/18 20:50 Neutrophils % 60.4 % (40.0-80.0) 09/27/18 20:50 Lymphocytes % 25.0 % (20.0-50.0) 09/27/18 20:50 Monocytes % 9.6 % (2.0-10.0) 09/27/18 20:50 Eosinophils % 4.9 % (0.0-5.0) 09/27/18 20:50 Basophils % 0.1 % (0.0-2.0) 09/27/18 20:50 Sodium 137 mEq/L (136-145) 09/27/18 20:50 Potassium 3.3 mEq/L (3.5-5.1) L 09/27/18 20:50 Chloride 103 mEq/L (98-107) 09/27/18 20:50 Carbon Dioxide 28.4 mEq/L (21.0-31.0) 09/27/18 20:50 Anion Gap 8.9 (7.0-16.0) 09/27/18 20:50 BUN 18 mg/dL (7-25) 09/27/18 20:50 Creatinine 1.0 mg/dL (0.7-1.3) 09/27/18 20:50 Est GFR ( Amer) > 60.0 ml/min (>90) 09/27/18 20:50 Est GFR (Non-Af Amer) > 60.0 ml/min 09/27/18 20:50 BUN/Creatinine Ratio 18.0 09/27/18 20:50 Glucose 100 mg/dL (70-105) 09/27/18 20:50 Calcium 9.4 mg/dL (8.6-10.3) 09/27/18 20:50 Total Bilirubin 0.2 mg/dL (0.3-1.0) L 09/27/18 20:50 AST 9 U/L (13-39) L 09/27/18 20:50 ALT 16 U/L (7-52) 09/27/18 20:50 Alkaline Phosphatase 70 U/L (34-104) 09/27/18 20:50 Troponin I < 0.01 ng/mL (0.01-0.05) L 09/27/18 20:50 B-Natriuretic Peptide 7.7 pg/mL (5.0-100.0) 09/27/18 20:50 Total Protein 7.1 gm/dL (6.0-8.3) 09/27/18 20:50 Albumin 4.1 gm/dL (4.2-5.5) L 09/27/18 20:50 Globulin 3.0 gm/dL 09/27/18 20:50 Albumin/Globulin Ratio 1.4 (1.0-1.8) 09/27/18 20:50 Triglycerides 114 mg/dL (<150) 09/28/18 06:10 Cholesterol 142 mg/dL (<200) 09/28/18 06:10 LDL Cholesterol Direct 87 mg/dL (75-193) 09/28/18 06:10 HDL Cholesterol 44 mg/dL (23-92) 09/28/18 06:10 TSH 2.17 uIU/ml (0.34-5.60) 09/27/18 20:50 [place] 0.62 mmol/L (0.5-1.0) 09/28/18 06:10 - Physical Exam Vitals and I&O: Vital Signs Temp 97.5 F 10/04/18 06:39 Pulse 59 10/04/18 06:39 Resp 18 10/04/18 06:39 BP 114/60 10/04/18 06:39 Pulse Ox 96 10/04/18 06:39 Intake & Output 10/03/18 10/04/18 10/04/18 18:59 06:59 18:59 Intake Total 180 Balance 180 Intake: Oral 180 Other: # Voids 3 # Bowel Movements 1 0 Active Medications: Current Medications Atorvastatin Calcium (Lipitor) 10 mg PO HS [facility]; Protocol Stop: 11/28/18 20:59 Last Admin: 10/03/18 20:43 Dose: 10 mg Docusate Sodium (Colace) 250 mg PO DAILY [facility] Stop: 11/28/18 08:59 Last Admin: 10/04/18 08:58 Dose: 250 mg Escitalopram Oxalate (Lexapro) 10 mg PO DAILY [facility]; Protocol Stop: 12/04/18 08:59 Fish Oil ([place] 3) 1,000 mg PO DAILY [facility] Stop: 11/28/18 08:59 Last Admin: 10/04/18 08:58 Dose: 1,000 mg Levothyroxine Sodium (Synthroid) 0.112 mg PO QDAC [facility] Stop: 11/29/18 07:29 Last Admin: 10/04/18 06:47 Dose: 0.112 mg [place] Carbonate (Eskalith) 300 mg PO BID [facility]; Protocol Stop: 11/27/18 08:59 Last Admin: 10/04/18 09:00 Dose: 300 mg Lorazepam (Ativan) 0.5 mg PO Q4HR PRN; Protocol PRN Reason: Anxiety Stop: 10/27/18 23:29 Last Admin: 10/03/18 08:58 Dose: 0.5 mg Neomycin/Polymyxin/Bacitracin (Triple Antibiotic Pkt) 1 pkt TP DAILY [facility] Stop: 12/03/18 08:59 Last Admin: 10/04/18 08:59 Dose: 1 pkt Olanzapine (Zyprexa) 10 mg PO TID [facility]; Protocol Stop: 11/27/18 08:59 Last Admin: 10/04/18 08:58 Dose: 10 mg Risperidone (Risperdal) 3 mg PO BID [facility]; Protocol Stop: 11/27/18 08:59 Last Admin: 10/04/18 08:58 Dose: 3 mg Zolpidem Tartrate (Ambien) 5 mg PO HS PRN PRN Reason: Insomnia Stop: 11/26/18 23:29 General: alert HEENT: NC/AT Neck: Supple Lungs: CTAB Abdomen: soft, non-tender Extremities: clear Neurological: no change Internal Medicine Assmt/Plan - Assessment Assessment: Dyslipidemia Hypothyroidism psychosis - Plan Plan: fall precautions continue snf meds continue current plan of care Nutritional Asmnt/Malnutr-PDOC - Dietary Evaluation Malnutrition Findings (Please click <Entered> for more info): Nutritional Asmnt/Malnutrition Start: 09/30/18 14: 22 Text: Status: Complete Freq: Protocol: Document 09/30/18 14:22 ROSENDAROXANA (Rec: 09/30/18 14:45 [email or web address]) Nutritional Asmnt/Malnutrition Patient General Information Nutritional Screening Moderate Risk Diagnosis psychosis, schizophrenia Pertinent Medical Hx/Surgical Hx dyslipidemia, hypothyroidism, depression, schizophrenia Subjective Information Spoke w/ pt who states his food is good and has no preferences. Pt was alert and oriented. Nursing noted PO intake: 100%. Current Diet Order/ Nutrition Support regular, low cholesterol Pertinent Medications lipitor, colace, omega 3, synthroid, risperdal Pertinent Labs 13/05: K 3.3, Alb 4.1, glucose 100 Nutritional Hx/Data Height 5 ft 4 in Height (Calculated Centimeters) 162.6 Current Weight (lbs) 150 lb Weight (Calculated Kilograms) 68.0 Weight (Calculated Grams) 05603.9 [place] Body Weight 130 lb Body Mass Index (BMI) 25.7 Weight Status Overweight GI Symptoms GI Symptoms None Last BM 09/29 Difficult in: None Food Allergies No Skin Integrity/Comment: intact, seth 20 Current %PO Good (75-100%) Estimated Nutritional Goals BEE in Kcals: Using Current wt Calories/Kcals/Kg 23-27 Kcals Calculated 8478-9266 Protein: Using Current wt Protein g/k.8 Protein Calculated 68 g Fluid: ml 6403-2776 (1 ml/kcal) Nutritional Problem No current Nutrition Prob Problem no nutrition dx at this time Malnutrition Alert Is there a minimum of two criteria No selected? Query Text:Check all the applicable criteria. A minimum of two criteria are recommended for diagnosis of either severe or non-severe malnutrition. Malnutrition Related to Morbid Obesity Malnutrition related to morbid obesity No Intervention/Recommendation Comments 1. Continue with regular, low cholesterol diet as ordered 2. Monitor PO intake, wt, labs and skin integrity 3. F/U as low risk in 7 days, 10/07 Expected Outcomes/Goals Expected Outcomes/Goals 1. PO intake to meet at least 75% of all meals 2. Wt stability, skin to remain intact, and nutrition related labs to approach normal limits Reviewed by Lucy Quintanilla RD
[2018-10-04] MEDS ORDERED: Haloperidol Lactate 5 mg/mL 1mL Vial IM STA ×2 (13:55→14:22)
[2018-10-04] MEDS ORDERED: Haloperidol Lactate 5 mg/mL 1mL Vial ONE (13:58)
--- NOTE | 2018-10-04 16:06 | Progress Notes ---
DATE: 10/04/2018 Case was discussed with staff of the patient, reviewed records. Covering for Dr. Brand. This is a 62-year-old male who was admitted on 09/27/2018. He was sexually inappropriate, irritable, and transferred from [facility] because of irritability, agitation, exhibiting sexual inappropriate behavior. He has been pacing, needing a lot of redirection with a history of schizoaffective disorder as well as history of hypothyroidism and hypercholesterolemia. He ____ isolating himself. He is on lithium 300 mg twice a day, Lexapro 5 mg daily, and olanzapine 10 mg 3 times a day, Risperdal 3 mg twice a day. No side effects, no sedation, and no extrapyramidal symptoms. I will be increasing his Lexapro dose to 10 mg a day. We will continue to work with the patient in group therapy, milieu therapy, or adjusting medication as needed. JOB# [id number]
[2018-10-04] MEDS: Atorvastatin Calcium 10 MG TAB PO SCH (20:41)
[2018-10-05] MEDS: Levothyroxine 0.112 Mg Tab PO SCH (06:41)
[2018-10-05] MEDS: Fish Oil 1,000 MG SGL PO SCH (09:26)
[2018-10-05] MEDS: Multivitamin w/ Minerals Tab PO SCH (09:26)
[2018-10-05] MEDS: Triple Antibiotic 0.94 gm Pkt TP SCH (09:27)
--- NOTE | 2018-10-05 14:10 | Internal Medicine Prog Note ---
Internal Medicine Subjective - Subjective Patient seen and examined:: chart reviewed Patient is:: awake, other (irritable ) Per staff patient has:: no adverse event Internal Medicine Objective - Results Result Diagrams: 09/27/18 20:50 09/27/18 20:50 Recent Labs: Laboratory Last Values WBC 7.3 Th/cmm (4.8-10.8) 09/27/18 20:50 RBC 4.61 Mil/cmm (4.30-5.70) 09/27/18 20:50 Hgb 13.9 gm/dL (12-16) 09/27/18 20:50 Hct 41.9 % (41.0-60) 09/27/18 20:50 MCV 91.0 fl (80-99) 09/27/18 20:50 MCH 30.2 pg (26.0-30.0) H 09/27/18 20:50 MCHC Differential 33.2 pg (28.0-36.0) 09/27/18 20:50 RDW 13.4 % (11.5-20.0) 09/27/18 20:50 Plt Count 235 Th/cmm (150-400) 09/27/18 20:50 MPV 6.9 fl 09/27/18 20:50 Neutrophils % 60.4 % (40.0-80.0) 09/27/18 20:50 Lymphocytes % 25.0 % (20.0-50.0) 09/27/18 20:50 Monocytes % 9.6 % (2.0-10.0) 09/27/18 20:50 Eosinophils % 4.9 % (0.0-5.0) 09/27/18 20:50 Basophils % 0.1 % (0.0-2.0) 09/27/18 20:50 Sodium 137 mEq/L (136-145) 09/27/18 20:50 Potassium 3.3 mEq/L (3.5-5.1) L 09/27/18 20:50 Chloride 103 mEq/L (98-107) 09/27/18 20:50 Carbon Dioxide 28.4 mEq/L (21.0-31.0) 09/27/18 20:50 Anion Gap 8.9 (7.0-16.0) 09/27/18 20:50 BUN 18 mg/dL (7-25) 09/27/18 20:50 Creatinine 1.0 mg/dL (0.7-1.3) 09/27/18 20:50 Est GFR ( Amer) > 60.0 ml/min (>90) 09/27/18 20:50 Est GFR (Non-Af Amer) > 60.0 ml/min 09/27/18 20:50 BUN/Creatinine Ratio 18.0 09/27/18 20:50 Glucose 100 mg/dL (70-105) 09/27/18 20:50 Calcium 9.4 mg/dL (8.6-10.3) 09/27/18 20:50 Total Bilirubin 0.2 mg/dL (0.3-1.0) L 09/27/18 20:50 AST 9 U/L (13-39) L 09/27/18 20:50 ALT 16 U/L (7-52) 09/27/18 20:50 Alkaline Phosphatase 70 U/L (34-104) 09/27/18 20:50 Troponin I < 0.01 ng/mL (0.01-0.05) L 09/27/18 20:50 B-Natriuretic Peptide 7.7 pg/mL (5.0-100.0) 09/27/18 20:50 Total Protein 7.1 gm/dL (6.0-8.3) 09/27/18 20:50 Albumin 4.1 gm/dL (4.2-5.5) L 09/27/18 20:50 Globulin 3.0 gm/dL 09/27/18 20:50 Albumin/Globulin Ratio 1.4 (1.0-1.8) 09/27/18 20:50 Triglycerides 114 mg/dL (<150) 09/28/18 06:10 Cholesterol 142 mg/dL (<200) 09/28/18 06:10 LDL Cholesterol Direct 87 mg/dL (75-193) 09/28/18 06:10 HDL Cholesterol 44 mg/dL (23-92) 09/28/18 06:10 TSH 2.17 uIU/ml (0.34-5.60) 09/27/18 20:50 [place] 0.62 mmol/L (0.5-1.0) 09/28/18 06:10 - Physical Exam Vitals and I&O: Vital Signs Temp 98.4 F 10/05/18 05:06 Pulse 74 10/05/18 05:06 Resp 19 10/05/18 05:06 BP 101/70 10/05/18 05:06 Pulse Ox 94 10/05/18 05:06 Intake & Output 10/04/18 10/05/18 10/05/18 18:59 06:59 18:59 Intake Total 480 Balance 480 Intake: Oral 480 Other: # Voids 2 Active Medications: Current Medications Atorvastatin Calcium (Lipitor) 10 mg PO HS [facility]; Protocol Stop: 11/28/18 20:59 Last Admin: 10/04/18 20:41 Dose: 10 mg Docusate Sodium (Colace) 250 mg PO DAILY [facility] Stop: 11/28/18 08:59 Last Admin: 10/05/18 09:26 Dose: 250 mg Escitalopram Oxalate (Lexapro) 10 mg PO DAILY [facility]; Protocol Stop: 12/04/18 08:59 Last Admin: 10/05/18 09:26 Dose: 10 mg Fish Oil ([place] 3) 1,000 mg PO DAILY [facility] Stop: 11/28/18 08:59 Last Admin: 10/05/18 09:26 Dose: 1,000 mg Levothyroxine Sodium (Synthroid) 0.112 mg PO QDAC [facility] Stop: 11/29/18 07:29 Last Admin: 10/05/18 06:41 Dose: 0.112 mg [place] Carbonate (Eskalith) 300 mg PO BID [facility]; Protocol Stop: 11/27/18 08:59 Last Admin: 10/05/18 09:27 Dose: 300 mg Neomycin/Polymyxin/Bacitracin (Triple Antibiotic Pkt) 1 pkt TP DAILY [facility] Stop: 12/03/18 08:59 Last Admin: 10/05/18 09:27 Dose: 1 pkt Olanzapine (Zyprexa) 10 mg PO TID [facility]; Protocol Stop: 11/27/18 08:59 Last Admin: 10/05/18 09:26 Dose: 10 mg Risperidone (Risperdal) 3 mg PO BID [facility]; Protocol Stop: 11/27/18 08:59 Last Admin: 10/05/18 09:26 Dose: 3 mg General: alert HEENT: NC/AT Neck: Supple Lungs: CTAB Abdomen: soft, non-tender Extremities: clear Neurological: no change Internal Medicine Assmt/Plan - Assessment Assessment: hypokalemia hyperlipidemia hypothyrodism depression psychosis - Plan Plan: as per order sheet as per psych will monitor Nutritional Asmnt/Malnutr-PDOC - Dietary Evaluation Malnutrition Findings (Please click <Entered> for more info): Nutritional Asmnt/Malnutrition Start: 09/30/18 14: 22 Text: Status: Complete Freq: Protocol: Document 09/30/18 14:22 CAL (Rec: 09/30/18 14:45 [email or web address]) Nutritional Asmnt/Malnutrition Patient General Information Nutritional Screening Moderate Risk Diagnosis psychosis, schizophrenia Pertinent Medical Hx/Surgical Hx dyslipidemia, hypothyroidism, depression, schizophrenia Subjective Information Spoke w/ pt who states his food is good and has no preferences. Pt was alert and oriented. Nursing noted PO intake: 100%. Current Diet Order/ Nutrition Support regular, low cholesterol Pertinent Medications lipitor, colace, omega 3, synthroid, risperdal Pertinent Labs 13/05: K 3.3, Alb 4.1, glucose 100 Nutritional Hx/Data Height 1.63 m Height (Calculated Centimeters) 162.6 Current Weight (lbs) 68.039 kg Weight (Calculated Kilograms) 68.0 Weight (Calculated Grams) 23120.9 [place] Body Weight 130 lb Body Mass Index (BMI) 25.7 Weight Status Overweight GI Symptoms GI Symptoms None Last BM 09/29 Difficult in: None Food Allergies No Skin Integrity/Comment: intact, seth 20 Current %PO Good (75-100%) Estimated Nutritional Goals BEE in Kcals: Using Current wt Calories/Kcals/Kg 23-27 Kcals Calculated 0071-4617 Protein: Using Current wt Protein g/k.8 Protein Calculated 68 g Fluid: ml 8543-3886 (1 ml/kcal) Nutritional Problem No current Nutrition Prob Problem no nutrition dx at this time Malnutrition Alert Is there a minimum of two criteria No selected? Query Text:Check all the applicable criteria. A minimum of two criteria are recommended for diagnosis of either severe or non-severe malnutrition. Malnutrition Related to Morbid Obesity Malnutrition related to morbid obesity No Intervention/Recommendation Comments 1. Continue with regular, low cholesterol diet as ordered 2. Monitor PO intake, wt, labs and skin integrity 3. F/U as low risk in 7 days, 10/07 Expected Outcomes/Goals Expected Outcomes/Goals 1. PO intake to meet at least 75% of all meals 2. Wt stability, skin to remain intact, and nutrition related labs to approach normal limits Reviewed by Lucy Quintanilla RD
[2018-10-05] MEDS: Atorvastatin Calcium 10 MG TAB PO SCH (20:34)
[2018-10-06] MEDS: Levothyroxine 0.112 Mg Tab PO SCH (06:47)
[2018-10-06] MEDS: Triple Antibiotic 0.94 gm Pkt TP SCH (09:30)
[2018-10-06] MEDS: Fish Oil 1,000 MG SGL PO SCH (09:30)
[2018-10-06] MEDS: Multivitamin w/ Minerals Tab PO SCH (09:31)
--- NOTE | 2018-10-06 11:09 | Internal Medicine Prog Note ---
Internal Medicine Subjective - Subjective Service Date: 10/06/18 Patient is:: awake, other (irritable ) Per staff patient has:: no adverse event Internal Medicine Objective - Results Result Diagrams: 09/27/18 20:50 09/27/18 20:50 Recent Labs: Laboratory Last Values WBC 7.3 Th/cmm (4.8-10.8) 09/27/18 20:50 RBC 4.61 Mil/cmm (4.30-5.70) 09/27/18 20:50 Hgb 13.9 gm/dL (12-16) 09/27/18 20:50 Hct 41.9 % (41.0-60) 09/27/18 20:50 MCV 91.0 fl (80-99) 09/27/18 20:50 MCH 30.2 pg (26.0-30.0) H 09/27/18 20:50 MCHC Differential 33.2 pg (28.0-36.0) 09/27/18 20:50 RDW 13.4 % (11.5-20.0) 09/27/18 20:50 Plt Count 235 Th/cmm (150-400) 09/27/18 20:50 MPV 6.9 fl 09/27/18 20:50 Neutrophils % 60.4 % (40.0-80.0) 09/27/18 20:50 Lymphocytes % 25.0 % (20.0-50.0) 09/27/18 20:50 Monocytes % 9.6 % (2.0-10.0) 09/27/18 20:50 Eosinophils % 4.9 % (0.0-5.0) 09/27/18 20:50 Basophils % 0.1 % (0.0-2.0) 09/27/18 20:50 Sodium 137 mEq/L (136-145) 09/27/18 20:50 Potassium 3.3 mEq/L (3.5-5.1) L 09/27/18 20:50 Chloride 103 mEq/L (98-107) 09/27/18 20:50 Carbon Dioxide 28.4 mEq/L (21.0-31.0) 09/27/18 20:50 Anion Gap 8.9 (7.0-16.0) 09/27/18 20:50 BUN 18 mg/dL (7-25) 09/27/18 20:50 Creatinine 1.0 mg/dL (0.7-1.3) 09/27/18 20:50 Est GFR ( Amer) > 60.0 ml/min (>90) 09/27/18 20:50 Est GFR (Non-Af Amer) > 60.0 ml/min 09/27/18 20:50 BUN/Creatinine Ratio 18.0 09/27/18 20:50 Glucose 100 mg/dL (70-105) 09/27/18 20:50 Calcium 9.4 mg/dL (8.6-10.3) 09/27/18 20:50 Total Bilirubin 0.2 mg/dL (0.3-1.0) L 09/27/18 20:50 AST 9 U/L (13-39) L 09/27/18 20:50 ALT 16 U/L (7-52) 09/27/18 20:50 Alkaline Phosphatase 70 U/L (34-104) 09/27/18 20:50 Troponin I < 0.01 ng/mL (0.01-0.05) L 09/27/18 20:50 B-Natriuretic Peptide 7.7 pg/mL (5.0-100.0) 09/27/18 20:50 Total Protein 7.1 gm/dL (6.0-8.3) 09/27/18 20:50 Albumin 4.1 gm/dL (4.2-5.5) L 09/27/18 20:50 Globulin 3.0 gm/dL 09/27/18 20:50 Albumin/Globulin Ratio 1.4 (1.0-1.8) 09/27/18 20:50 Triglycerides 114 mg/dL (<150) 09/28/18 06:10 Cholesterol 142 mg/dL (<200) 09/28/18 06:10 LDL Cholesterol Direct 87 mg/dL (75-193) 09/28/18 06:10 HDL Cholesterol 44 mg/dL (23-92) 09/28/18 06:10 TSH 2.17 uIU/ml (0.34-5.60) 09/27/18 20:50 [place] 0.62 mmol/L (0.5-1.0) 09/28/18 06:10 - Physical Exam Vitals and I&O: Vital Signs Temp 97.3 F 10/06/18 06:47 Pulse 72 10/06/18 06:47 Resp 20 10/06/18 06:47 BP 115/67 10/06/18 06:47 Pulse Ox 97 10/06/18 06:47 Intake & Output 10/05/18 10/06/18 10/06/18 18:59 06:59 18:59 Intake Total 900 120 Balance 900 120 Intake: Oral 900 120 Other: # Voids 3 2 # Bowel Movements 1 Active Medications: Current Medications Atorvastatin Calcium (Lipitor) 10 mg PO HS [facility]; Protocol Stop: 11/28/18 20:59 Last Admin: 10/05/18 20:34 Dose: 10 mg Docusate Sodium (Colace) 250 mg PO DAILY [facility] Stop: 11/28/18 08:59 Last Admin: 10/06/18 09:30 Dose: 250 mg Escitalopram Oxalate (Lexapro) 10 mg PO DAILY [facility]; Protocol Stop: 12/04/18 08:59 Last Admin: 10/06/18 09:30 Dose: 10 mg Fish Oil ([place] 3) 1,000 mg PO DAILY [facility] Stop: 11/28/18 08:59 Last Admin: 10/06/18 09:30 Dose: 1,000 mg Levothyroxine Sodium (Synthroid) 0.112 mg PO QDAC [facility] Stop: 11/29/18 07:29 Last Admin: 10/06/18 06:47 Dose: 0.112 mg [place] Carbonate (Eskalith) 300 mg PO BID [facility]; Protocol Stop: 11/27/18 08:59 Last Admin: 10/06/18 09:31 Dose: 300 mg Neomycin/Polymyxin/Bacitracin (Triple Antibiotic Pkt) 1 pkt TP DAILY [facility] Stop: 12/03/18 08:59 Last Admin: 10/06/18 09:30 Dose: 1 pkt Olanzapine (Zyprexa) 10 mg PO TID [facility]; Protocol Stop: 11/27/18 08:59 Last Admin: 10/06/18 09:30 Dose: 10 mg Risperidone (Risperdal) 3 mg PO BID [facility]; Protocol Stop: 11/27/18 08:59 Last Admin: 10/06/18 09:30 Dose: 3 mg General: alert HEENT: NC/AT Neck: Supple Lungs: CTAB Abdomen: soft, non-tender Extremities: clear Neurological: no change Internal Medicine Assmt/Plan - Assessment Assessment: Dyslipidemia Hypothyroidism psychosis - Plan Plan: fall precautions continue snf meds continue current plan of care Nutritional Asmnt/Malnutr-PDOC - Dietary Evaluation Malnutrition Findings (Please click <Entered> for more info): Nutritional Asmnt/Malnutrition Start: 09/30/18 14: 22 Text: Status: Complete Freq: Protocol: Document 09/30/18 14:22 CLA (Rec: 09/30/18 14:45 [email or web address]) Nutritional Asmnt/Malnutrition Patient General Information Nutritional Screening Moderate Risk Diagnosis psychosis, schizophrenia Pertinent Medical Hx/Surgical Hx dyslipidemia, hypothyroidism, depression, schizophrenia Subjective Information Spoke w/ pt who states his food is good and has no preferences. Pt was alert and oriented. Nursing noted PO intake: 100%. Current Diet Order/ Nutrition Support regular, low cholesterol Pertinent Medications lipitor, colace, omega 3, synthroid, risperdal Pertinent Labs 13/05: K 3.3, Alb 4.1, glucose 100 Nutritional Hx/Data Height 5 ft 4 in Height (Calculated Centimeters) 162.6 Current Weight (lbs) 150 lb Weight (Calculated Kilograms) 68.0 Weight (Calculated Grams) 55545.9 [place] Body Weight 130 lb Body Mass Index (BMI) 25.7 Weight Status Overweight GI Symptoms GI Symptoms None Last BM 09/29 Difficult in: None Food Allergies No Skin Integrity/Comment: intact, seht 20 Current %PO Good (75-100%) Estimated Nutritional Goals BEE in Kcals: Using Current wt Calories/Kcals/Kg 23-27 Kcals Calculated 1154-3937 Protein: Using Current wt Protein g/k.8 Protein Calculated 68 g Fluid: ml 9712-1309 (1 ml/kcal) Nutritional Problem No current Nutrition Prob Problem no nutrition dx at this time Malnutrition Alert Is there a minimum of two criteria No selected? Query Text:Check all the applicable criteria. A minimum of two criteria are recommended for diagnosis of either severe or non-severe malnutrition. Malnutrition Related to Morbid Obesity Malnutrition related to morbid obesity No Intervention/Recommendation Comments 1. Continue with regular, low cholesterol diet as ordered 2. Monitor PO intake, wt, labs and skin integrity 3. F/U as low risk in 7 days, 10/07 Expected Outcomes/Goals Expected Outcomes/Goals 1. PO intake to meet at least 75% of all meals 2. Wt stability, skin to remain intact, and nutrition related labs to approach normal limits Reviewed by Lucy Quintanilla RD
[2018-10-06 11:53] LABS: URINE SOURCE RANDOM
[2018-10-06 11:56] LABS: URINE BILIRUBIN NEGATIVE (NEGATIVE); URINE BLOOD NEGATIVE (NEGATIVE); URINE GLUCOSE (UA) NEGATIVE (NEGATIVE); URINE KETONE NEGATIVE (NEGATIVE); URINE LEUKOCYTE ESTERASE NEGATIVE (NEGATIVE); URINE NITRATE NEGATIVE (NEGATIVE); URINE PH 6.5 (4.6 - 8.0); URINE PROTEIN NEGATIVE (NEGATIVE); URINE UROBILINOGEN 0.2 E.U./dL (0.2 - 1.0)
[2018-10-06 11:59] LABS: URINE CLARITY CLEAR (CLEAR); URINE COLOR YELLOW; URINE MICROSCOPIC INDICATED? YES
[2018-10-06 12:02] LABS: URINE BACTERIA RARE /hpf (NONE SEEN); URINE EPITHELIAL CELLS RARE /lpf (FEW); URINE RBC NONE SEEN /hpf (0-5); URINE SPERM FEW /hpf (NONE SEEN); URINE WBC 0-2 /hpf (0-5)
[2018-10-06] MEDS: Atorvastatin Calcium 10 MG TAB PO SCH (20:59)
--- NOTE | 2018-10-07 06:29 | Progress Notes ---
DATE: 10/05/2018 PSYCHIATRIC PROGRESS NOTE SUBJECTIVE: Chart reviewed and the patient interviewed. Also discussed the patient's condition with the staff and reviewed records and labs. The patient continued to be confused and continued to be withdrawn. The patient also is still isolative and he still wants to be left alone. Also shows decrease in his sexual inappropriate behavior. He also is staying by himself most of the time. The patient is complaining of "scabs in my feet." He is still nervous and anxious. ASSESSMENT: The patient is still psychotic, but seems to be less. TREATMENT PLAN: Continue to monitor his behavior and his condition closely and continue adjusting psychotropic medications and work on behavioral modification. JOB# [id number]
[2018-10-07] MEDS: Levothyroxine 0.112 Mg Tab PO SCH (06:42)
[2018-10-07] MEDS: Triple Antibiotic 0.94 gm Pkt TP SCH (09:13)
[2018-10-07] MEDS: Multivitamin w/ Minerals Tab PO SCH (09:13)
[2018-10-07] MEDS: Fish Oil 1,000 MG SGL PO SCH (09:14)
[2018-10-07] MEDS ORDERED: Haloperidol Lactate 5 mg/mL 1mL Vial IM STA (12:43)
[2018-10-07] MEDS ORDERED: Haloperidol Lactate 5 mg/mL 1mL Vial ONE (12:50)
[2018-10-07] MEDS ORDERED: Haloperidol Lactate 5 mg/mL 1mL Vial IM ONE (13:45)
--- NOTE | 2018-10-07 14:55 | Internal Medicine Prog Note ---
Internal Medicine Subjective - Subjective Patient seen and examined:: chart reviewed Patient is:: awake, other (still irritable ) Per staff patient has:: no adverse event Internal Medicine Objective - Results Result Diagrams: 09/27/18 20:50 09/27/18 20:50 Recent Labs: Laboratory Last Values WBC 7.3 Th/cmm (4.8-10.8) 09/27/18 20:50 RBC 4.61 Mil/cmm (4.30-5.70) 09/27/18 20:50 Hgb 13.9 gm/dL (12-16) 09/27/18 20:50 Hct 41.9 % (41.0-60) 09/27/18 20:50 MCV 91.0 fl (80-99) 09/27/18 20:50 MCH 30.2 pg (26.0-30.0) H 09/27/18 20:50 MCHC Differential 33.2 pg (28.0-36.0) 09/27/18 20:50 RDW 13.4 % (11.5-20.0) 09/27/18 20:50 Plt Count 235 Th/cmm (150-400) 09/27/18 20:50 MPV 6.9 fl 09/27/18 20:50 Neutrophils % 60.4 % (40.0-80.0) 09/27/18 20:50 Lymphocytes % 25.0 % (20.0-50.0) 09/27/18 20:50 Monocytes % 9.6 % (2.0-10.0) 09/27/18 20:50 Eosinophils % 4.9 % (0.0-5.0) 09/27/18 20:50 Basophils % 0.1 % (0.0-2.0) 09/27/18 20:50 Sodium 137 mEq/L (136-145) 09/27/18 20:50 Potassium 3.3 mEq/L (3.5-5.1) L 09/27/18 20:50 Chloride 103 mEq/L (98-107) 09/27/18 20:50 Carbon Dioxide 28.4 mEq/L (21.0-31.0) 09/27/18 20:50 Anion Gap 8.9 (7.0-16.0) 09/27/18 20:50 BUN 18 mg/dL (7-25) 09/27/18 20:50 Creatinine 1.0 mg/dL (0.7-1.3) 09/27/18 20:50 Est GFR ( Amer) > 60.0 ml/min (>90) 09/27/18 20:50 Est GFR (Non-Af Amer) > 60.0 ml/min 09/27/18 20:50 BUN/Creatinine Ratio 18.0 09/27/18 20:50 Glucose 100 mg/dL (70-105) 09/27/18 20:50 Calcium 9.4 mg/dL (8.6-10.3) 09/27/18 20:50 Total Bilirubin 0.2 mg/dL (0.3-1.0) L 09/27/18 20:50 AST 9 U/L (13-39) L 09/27/18 20:50 ALT 16 U/L (7-52) 09/27/18 20:50 Alkaline Phosphatase 70 U/L (34-104) 09/27/18 20:50 Troponin I < 0.01 ng/mL (0.01-0.05) L 09/27/18 20:50 B-Natriuretic Peptide 7.7 pg/mL (5.0-100.0) 09/27/18 20:50 Total Protein 7.1 gm/dL (6.0-8.3) 09/27/18 20:50 Albumin 4.1 gm/dL (4.2-5.5) L 09/27/18 20:50 Globulin 3.0 gm/dL 09/27/18 20:50 Albumin/Globulin Ratio 1.4 (1.0-1.8) 09/27/18 20:50 Triglycerides 114 mg/dL (<150) 09/28/18 06:10 Cholesterol 142 mg/dL (<200) 09/28/18 06:10 LDL Cholesterol Direct 87 mg/dL (75-193) 09/28/18 06:10 HDL Cholesterol 44 mg/dL (23-92) 09/28/18 06:10 TSH 2.17 uIU/ml (0.34-5.60) 09/27/18 20:50 Urine Source RANDOM 10/06/18 11:45 Urine Color YELLOW 10/06/18 11:45 Urine Clarity CLEAR (CLEAR) 10/06/18 11:45 Urine pH 6.5 (4.6 - 8.0) 10/06/18 11:45 Ur Specific [place] 1.010 (1.005-1.030) 10/06/18 11:45 Urine Protein NEGATIVE mg/dL (NEGATIVE) 10/06/18 11:45 Urine Glucose (UA) NEGATIVE mg/dL (NEGATIVE) 10/06/18 11:45 Urine Ketones NEGATIVE mg/dL (NEGATIVE) 10/06/18 11:45 Urine Blood NEGATIVE (NEGATIVE) 10/06/18 11:45 Urine Nitrate NEGATIVE (NEGATIVE) 10/06/18 11:45 Urine Bilirubin NEGATIVE (NEGATIVE) 10/06/18 11:45 Urine Urobilinogen 0.2 E.U./dL (0.2 - 1.0) 10/06/18 11:45 Ur Leukocyte Esterase NEGATIVE (NEGATIVE) 10/06/18 11:45 Urine RBC NONE SEEN /hpf (0-5) 10/06/18 11:45 Urine WBC 0-2 /hpf (0-5) 10/06/18 11:45 Ur Epithelial Cells RARE /lpf (FEW) 10/06/18 11:45 Urine Bacteria RARE /hpf (NONE SEEN) 10/06/18 11:45 Urine Sperm FEW /hpf (NONE SEEN) 10/06/18 11:45 [place] 0.62 mmol/L (0.5-1.0) 09/28/18 06:10 - Physical Exam Vitals and I&O: Vital Signs Temp 97.3 F 10/07/18 14:00 Pulse 78 10/07/18 14:00 Resp 19 10/07/18 14:00 BP 111/59 10/07/18 14:00 Pulse Ox 99 10/07/18 14:00 Intake & Output 10/06/18 10/07/18 10/07/18 18:59 06:59 18:59 Intake Total 240 Balance 240 Intake: Oral 240 Other: # Voids 2 Active Medications: Current Medications Atorvastatin Calcium (Lipitor) 10 mg PO HS [facility]; Protocol Stop: 11/28/18 20:59 Last Admin: 10/06/18 20:59 Dose: 10 mg Docusate Sodium (Colace) 250 mg PO DAILY [facility] Stop: 11/28/18 08:59 Last Admin: 10/07/18 09:13 Dose: 250 mg Escitalopram Oxalate (Lexapro) 10 mg PO DAILY [facility]; Protocol Stop: 12/04/18 08:59 Last Admin: 10/07/18 09:13 Dose: 10 mg Fish Oil ([place] 3) 1,000 mg PO DAILY [facility] Stop: 11/28/18 08:59 Last Admin: 10/07/18 09:14 Dose: 1,000 mg Levothyroxine Sodium (Synthroid) 0.112 mg PO QDAC [facility] Stop: 11/29/18 07:29 Last Admin: 10/07/18 06:42 Dose: 0.112 mg [place] Carbonate (Eskalith) 300 mg PO BID [facility]; Protocol Stop: 11/27/18 08:59 Last Admin: 10/07/18 09:13 Dose: 300 mg Neomycin/Polymyxin/Bacitracin (Triple Antibiotic Pkt) 1 pkt TP DAILY [facility] Stop: 12/03/18 08:59 Last Admin: 10/07/18 09:13 Dose: 1 pkt Olanzapine (Zyprexa) 10 mg PO TID [facility]; Protocol Stop: 11/27/18 08:59 Last Admin: 10/07/18 13:09 Dose: 10 mg Risperidone (Risperdal) 3 mg PO BID [facility]; Protocol Stop: 11/27/18 08:59 Last Admin: 10/07/18 09:13 Dose: 3 mg General: alert HEENT: NC/AT Neck: Supple Lungs: CTAB Abdomen: soft, non-tender Extremities: clear Neurological: no change Internal Medicine Assmt/Plan - Assessment Assessment: hypokalemia hyperlipidemia hypothyrodism depression psychosis - Plan Plan: as per order sheet as per psych will monitor Nutritional Asmnt/Malnutr-PDOC - Dietary Evaluation Malnutrition Findings (Please click <Entered> for more info): Nutritional Asmnt/Malnutrition Start: 09/30/18 14: 22 Text: Status: Complete Freq: Protocol: Document 09/30/18 14:22 CAL (Rec: 09/30/18 14:45 CAL [email or web address]) Nutritional Asmnt/Malnutrition Patient General Information Nutritional Screening Moderate Risk Diagnosis psychosis, schizophrenia Pertinent Medical Hx/Surgical Hx dyslipidemia, hypothyroidism, depression, schizophrenia Subjective Information Spoke w/ pt who states his food is good and has no preferences. Pt was alert and oriented. Nursing noted PO intake: 100%. Current Diet Order/ Nutrition Support regular, low cholesterol Pertinent Medications lipitor, colace, omega 3, synthroid, risperdal Pertinent Labs 13/05: K 3.3, Alb 4.1, glucose 100 Nutritional Hx/Data Height 1.63 m Height (Calculated Centimeters) 162.6 Current Weight (lbs) 68.039 kg Weight (Calculated Kilograms) 68.0 Weight (Calculated Grams) 55912.9 [place] Body Weight 130 lb Body Mass Index (BMI) 25.7 Weight Status Overweight GI Symptoms GI Symptoms None Last BM 09/29 Difficult in: None Food Allergies No Skin Integrity/Comment: intact, seth 20 Current %PO Good (75-100%) Estimated Nutritional Goals BEE in Kcals: Using Current wt Calories/Kcals/Kg 23-27 Kcals Calculated 1208-4728 Protein: Using Current wt Protein g/k.8 Protein Calculated 68 g Fluid: ml 1915-9245 (1 ml/kcal) Nutritional Problem No current Nutrition Prob Problem no nutrition dx at this time Malnutrition Alert Is there a minimum of two criteria No selected? Query Text:Check all the applicable criteria. A minimum of two criteria are recommended for diagnosis of either severe or non-severe malnutrition. Malnutrition Related to Morbid Obesity Malnutrition related to morbid obesity No Intervention/Recommendation Comments 1. Continue with regular, low cholesterol diet as ordered 2. Monitor PO intake, wt, labs and skin integrity 3. F/U as low risk in 7 days, 10/07 Expected Outcomes/Goals Expected Outcomes/Goals 1. PO intake to meet at least 75% of all meals 2. Wt stability, skin to remain intact, and nutrition related labs to approach normal limits Reviewed by Lucy Quintanilla RD
[2018-10-07] MEDS: Atorvastatin Calcium 10 MG TAB PO SCH (20:24)
--- NOTE | 2018-10-07 20:35 | Progress Notes ---
DATE: 10/06/2018 SUBJECTIVE: Chart reviewed and the patient interviewed. Also, discussed the patient's condition with the staff and reviewed records and labs. The patient is still agitated and the patient still has episodes of anger and irritability. Also, the patient is still monitored closely for any possibility of sexual inappropriate behavior. Sexual inappropriate behavior seems to be less than before. Otherwise, the patient is compliant with taking his medications with no side effects of medications. ASSESSMENT: The patient is still agitated and psychotic. TREATMENT PLAN: We will continue to monitor behavior and condition closely. Also, we will continue to work on behavior modification and adjusting psychotropic medications. JOB# [id number]
--- NOTE | 2018-10-07 21:22 | Progress Notes ---
DATE: SUBJECTIVE: Chart reviewed and the patient interviewed. Also discussed the patient's condition with the staff and reviewed the records and labs. The patient's affect is brighter. The patient is less irritable and less agitated. He also is interacting more with peers and with others. He denies any intention to harm himself or others. Also, no sexual inappropriate behavior. ASSESSMENT: The patient is calm and cooperative. TREATMENT PLAN: We will discharge the patient to [place]. Outpatient treatment and followup will continue there. [facility]# [id number]
[2018-10-08] MEDS: Levothyroxine 0.112 Mg Tab PO SCH (06:42)
[2018-10-08] MEDS: Fish Oil 1,000 MG SGL PO SCH (09:25)
[2018-10-08] MEDS: Multivitamin w/ Minerals Tab PO SCH (09:26)
[2018-10-08] MEDS: Triple Antibiotic 0.94 gm Pkt TP SCH (09:26)
[2018-10-08] MEDS: Atorvastatin Calcium 10 MG TAB PO SCH (20:50)
--- NOTE | 2018-10-08 23:27 | Progress Notes ---
DATE: 10/08/2018 Case was discussed with staff of the patient, reviewed records. This is well-known case to me as I have seen him before covering for Dr. Brand. Actually, since I have last seen him, I have to give orders on behalf of Dr. Brand because of his agitation including yesterday he has been out of control, inappropriate. He is unable to make a safe plan for self-care. He is sleeping and eating better. No side effects of the medication, no sedation, no nausea, no extrapyramidal symptoms. Yesterday, I gave a note to give him Haldol with Ativan and Benadryl. The patient is on lithium 300 mg twice a day and Zyprexa 10 mg 3 times a day and Risperdal 3 mg twice a day with no side effects, no sedation, no nausea, no extrapyramidal symptoms. [place] level is 0.62, which is within acceptable therapeutic range and will continue to work with the patient in group therapy, milieu therapy, and adjust medication as needed. JOB# [id number]
--- NOTE | 2018-10-09 03:24 | Progress Notes ---
DATE: 10/08/2018 SUBJECTIVE: The patient was seen in his room. The patient appears to be guarded, easily gets frustrated and irritable. The patient is withdrawn, otherwise the patient is in no acute distress. OBJECTIVE: VITAL SIGNS: Temperature 97.9, heart rate 66, respirations of 20, blood pressure 115/70, and saturation 98. HEENT: Head is atraumatic and normocephalic. Eyes: Bilateral conjunctivae are clear. Bilateral pupils equal, round, and reactive. NECK: Supple. No JVD. CARDIOVASCULAR: S1 and S2, without murmur. PULMONARY: Clear to auscultation. GASTROINTESTINAL: Soft and nontender without guarding. Positive bowel sounds. MUSCULOSKELETAL: No clubbing. No cyanosis noted. DIAGNOSES: 1. Schizoaffective disorder, bipolar type. 2. Hypothyroidism. 3. Hyperlipidemia. PLAN: We will keep the patient inpatient Psychiatric care. We will follow up with a psychiatrist and monitor the patient's condition and behavior. Treatment plans were discussed with the patient's nurse. Treatment plans were discussed with Dr. [place]. JOB# [id number]
[2018-10-09] MEDS: Levothyroxine 0.112 Mg Tab PO SCH (06:39)
--- NOTE | 2018-10-09 08:36 | Internal Medicine Prog Note ---
Internal Medicine Subjective - Subjective Patient seen and examined:: chart reviewed Patient is:: awake, other (still irritable ,eating better) Per staff patient has:: no adverse event Internal Medicine Objective - Results Result Diagrams: 09/27/18 20:50 09/27/18 20:50 Recent Labs: Laboratory Last Values WBC 7.3 Th/cmm (4.8-10.8) 09/27/18 20:50 RBC 4.61 Mil/cmm (4.30-5.70) 09/27/18 20:50 Hgb 13.9 gm/dL (12-16) 09/27/18 20:50 Hct 41.9 % (41.0-60) 09/27/18 20:50 MCV 91.0 fl (80-99) 09/27/18 20:50 MCH 30.2 pg (26.0-30.0) H 09/27/18 20:50 MCHC Differential 33.2 pg (28.0-36.0) 09/27/18 20:50 RDW 13.4 % (11.5-20.0) 09/27/18 20:50 Plt Count 235 Th/cmm (150-400) 09/27/18 20:50 MPV 6.9 fl 09/27/18 20:50 Neutrophils % 60.4 % (40.0-80.0) 09/27/18 20:50 Lymphocytes % 25.0 % (20.0-50.0) 09/27/18 20:50 Monocytes % 9.6 % (2.0-10.0) 09/27/18 20:50 Eosinophils % 4.9 % (0.0-5.0) 09/27/18 20:50 Basophils % 0.1 % (0.0-2.0) 09/27/18 20:50 Sodium 137 mEq/L (136-145) 09/27/18 20:50 Potassium 3.3 mEq/L (3.5-5.1) L 09/27/18 20:50 Chloride 103 mEq/L (98-107) 09/27/18 20:50 Carbon Dioxide 28.4 mEq/L (21.0-31.0) 09/27/18 20:50 Anion Gap 8.9 (7.0-16.0) 09/27/18 20:50 BUN 18 mg/dL (7-25) 09/27/18 20:50 Creatinine 1.0 mg/dL (0.7-1.3) 09/27/18 20:50 Est GFR ( Amer) > 60.0 ml/min (>90) 09/27/18 20:50 Est GFR (Non-Af Amer) > 60.0 ml/min 09/27/18 20:50 BUN/Creatinine Ratio 18.0 09/27/18 20:50 Glucose 100 mg/dL (70-105) 09/27/18 20:50 Calcium 9.4 mg/dL (8.6-10.3) 09/27/18 20:50 Total Bilirubin 0.2 mg/dL (0.3-1.0) L 09/27/18 20:50 AST 9 U/L (13-39) L 09/27/18 20:50 ALT 16 U/L (7-52) 09/27/18 20:50 Alkaline Phosphatase 70 U/L (34-104) 09/27/18 20:50 Troponin I < 0.01 ng/mL (0.01-0.05) L 09/27/18 20:50 B-Natriuretic Peptide 7.7 pg/mL (5.0-100.0) 09/27/18 20:50 Total Protein 7.1 gm/dL (6.0-8.3) 09/27/18 20:50 Albumin 4.1 gm/dL (4.2-5.5) L 09/27/18 20:50 Globulin 3.0 gm/dL 09/27/18 20:50 Albumin/Globulin Ratio 1.4 (1.0-1.8) 09/27/18 20:50 Triglycerides 114 mg/dL (<150) 09/28/18 06:10 Cholesterol 142 mg/dL (<200) 09/28/18 06:10 LDL Cholesterol Direct 87 mg/dL (75-193) 09/28/18 06:10 HDL Cholesterol 44 mg/dL (23-92) 09/28/18 06:10 TSH 2.17 uIU/ml (0.34-5.60) 09/27/18 20:50 Urine Source RANDOM 10/06/18 11:45 Urine Color YELLOW 10/06/18 11:45 Urine Clarity CLEAR (CLEAR) 10/06/18 11:45 Urine pH 6.5 (4.6 - 8.0) 10/06/18 11:45 Ur Specific [place] 1.010 (1.005-1.030) 10/06/18 11:45 Urine Protein NEGATIVE mg/dL (NEGATIVE) 10/06/18 11:45 Urine Glucose (UA) NEGATIVE mg/dL (NEGATIVE) 10/06/18 11:45 Urine Ketones NEGATIVE mg/dL (NEGATIVE) 10/06/18 11:45 Urine Blood NEGATIVE (NEGATIVE) 10/06/18 11:45 Urine Nitrate NEGATIVE (NEGATIVE) 10/06/18 11:45 Urine Bilirubin NEGATIVE (NEGATIVE) 10/06/18 11:45 Urine Urobilinogen 0.2 E.U./dL (0.2 - 1.0) 10/06/18 11:45 Ur Leukocyte Esterase NEGATIVE (NEGATIVE) 10/06/18 11:45 Urine RBC NONE SEEN /hpf (0-5) 10/06/18 11:45 Urine WBC 0-2 /hpf (0-5) 10/06/18 11:45 Ur Epithelial Cells RARE /lpf (FEW) 10/06/18 11:45 Urine Bacteria RARE /hpf (NONE SEEN) 10/06/18 11:45 Urine Sperm FEW /hpf (NONE SEEN) 10/06/18 11:45 [place] 0.62 mmol/L (0.5-1.0) 09/28/18 06:10 - Physical Exam Vitals and I&O: Vital Signs Temp 98.1 F 10/09/18 06:18 Pulse 66 10/09/18 06:18 Resp 20 10/09/18 06:18 BP 100/60 10/09/18 06:18 Pulse Ox 97 10/08/18 20:34 Intake & Output 10/08/18 10/09/18 10/09/18 18:59 06:59 18:59 Intake Total 1100 Balance 1100 Intake: Oral 1100 Other: # Voids 4 # Bowel Movements 1 Active Medications: Current Medications Atorvastatin Calcium (Lipitor) 10 mg PO HS [facility]; Protocol Stop: 11/28/18 20:59 Last Admin: 10/08/18 20:50 Dose: 10 mg Docusate Sodium (Colace) 250 mg PO DAILY LUDWIG Stop: 11/28/18 08:59 Last Admin: 10/08/18 09:26 Dose: 250 mg Escitalopram Oxalate (Lexapro) 10 mg PO DAILY [facility]; Protocol Stop: 12/04/18 08:59 Last Admin: 10/08/18 09:25 Dose: 10 mg Fish Oil ([place] 3) 1,000 mg PO DAILY LUDWIG Stop: 11/28/18 08:59 Last Admin: 10/08/18 09:25 Dose: 1,000 mg Levothyroxine Sodium (Synthroid) 0.112 mg PO QDAC LUDWIG Stop: 11/29/18 07:29 Last Admin: 10/09/18 06:39 Dose: 0.112 mg [place] Carbonate (Eskalith) 300 mg PO BID LUDWIG; Protocol Stop: 11/27/18 08:59 Last Admin: 10/08/18 17:32 Dose: 300 mg Neomycin/Polymyxin/Bacitracin (Triple Antibiotic Pkt) 1 pkt TP DAILY LUDWIG Stop: 12/03/18 08:59 Last Admin: 10/08/18 09:26 Dose: 1 pkt Olanzapine (Zyprexa) 10 mg PO TID [facility]; Protocol Stop: 11/27/18 08:59 Last Admin: 10/08/18 20:50 Dose: 10 mg Risperidone (Risperdal) 3 mg PO BID [facility]WIG; Protocol Stop: 11/27/18 08:59 Last Admin: 10/08/18 17:32 Dose: 3 mg General: alert HEENT: NC/AT Neck: Supple Lungs: CTAB Abdomen: soft, non-tender Extremities: clear Neurological: no change Internal Medicine Assmt/Plan - Assessment Assessment: hypokalemia hyperlipidemia hypothyrodism depression psychosis - Plan Plan: as per order sheet as per psych will monitor Nutritional Asmnt/Malnutr-PDOC - Dietary Evaluation Malnutrition Findings (Please click <Entered> for more info): Nutritional Asmnt/Malnutrition Start: 09/30/18 14: 22 Text: Status: Complete Freq: Protocol: Document 09/30/18 14:22 CAL (Rec: 09/30/18 14:45 CAL [email or web address]) Nutritional Asmnt/Malnutrition Patient General Information Nutritional Screening Moderate Risk Diagnosis psychosis, schizophrenia Pertinent Medical Hx/Surgical Hx dyslipidemia, hypothyroidism, depression, schizophrenia Subjective Information Spoke w/ pt who states his food is good and has no preferences. Pt was alert and oriented. Nursing noted PO intake: 100%. Current Diet Order/ Nutrition Support regular, low cholesterol Pertinent Medications lipitor, colace, omega 3, synthroid, risperdal Pertinent Labs 13/05: K 3.3, Alb 4.1, glucose 100 Nutritional Hx/Data Height 1.63 m Height (Calculated Centimeters) 162.6 Current Weight (lbs) 68.039 kg Weight (Calculated Kilograms) 68.0 Weight (Calculated Grams) 68729.9 [place] Body Weight 130 lb Body Mass Index (BMI) 25.7 Weight Status Overweight GI Symptoms GI Symptoms None Last BM 09/29 Difficult in: None Food Allergies No Skin Integrity/Comment: intact, seth 20 Current %PO Good (75-100%) Estimated Nutritional Goals BEE in Kcals: Using Current wt Calories/Kcals/Kg 23-27 Kcals Calculated 7255-3185 Protein: Using Current wt Protein g/k.8 Protein Calculated 68 g Fluid: ml 3176-8159 (1 ml/kcal) Nutritional Problem No current Nutrition Prob Problem no nutrition dx at this time Malnutrition Alert Is there a minimum of two criteria No selected? Query Text:Check all the applicable criteria. A minimum of two criteria are recommended for diagnosis of either severe or non-severe malnutrition. Malnutrition Related to Morbid Obesity Malnutrition related to morbid obesity No Intervention/Recommendation Comments 1. Continue with regular, low cholesterol diet as ordered 2. Monitor PO intake, wt, labs and skin integrity 3. F/U as low risk in 7 days, 10/07 Expected Outcomes/Goals Expected Outcomes/Goals 1. PO intake to meet at least 75% of all meals 2. Wt stability, skin to remain intact, and nutrition related labs to approach normal limits Reviewed by Lucy Quintanilla RD
[2018-10-09] MEDS: Triple Antibiotic 0.94 gm Pkt TP SCH (08:57)
[2018-10-09] MEDS: Multivitamin w/ Minerals Tab PO SCH (08:58)
[2018-10-09] MEDS: Fish Oil 1,000 MG SGL PO SCH (08:58)
--- NOTE | 2018-10-09 20:44 | Progress Notes ---
DATE: 10/09/2018 SUBJECTIVE: Case was discussed with staff of the patient, reviewed records. He continues to have episodes of agitation and irritability. He continues to be unpredictable and impulsive. He has very poor insight about his treatment and behavior. He is compliant with the medication with no side effects, no sedation, no nausea, and no extrapyramidal symptoms. He is already on olanzapine 10 mg 3 times a day and Risperdal 3 mg twice a day with no side effects. We will continue to work with the patient in group therapy, milieu therapy, and adjust the medications as needed. JOB# [id number]
[2018-10-09] MEDS: Atorvastatin Calcium 10 MG TAB PO SCH (21:13)
[2018-10-10] MEDS: Levothyroxine 0.112 Mg Tab PO SCH (06:47)
[2018-10-10] MEDS: Triple Antibiotic 0.94 gm Pkt TP SCH (08:41)
[2018-10-10] MEDS: Fish Oil 1,000 MG SGL PO SCH (08:41)
[2018-10-10] MEDS: Multivitamin w/ Minerals Tab PO SCH (08:42)
--- NOTE | 2018-10-10 10:23 | Internal Medicine Prog Note ---
Internal Medicine Subjective - Subjective Patient seen and examined:: chart reviewed Patient is:: awake, other (still irritable, unpredictable ) Per staff patient has:: no adverse event Internal Medicine Objective - Results Result Diagrams: 09/27/18 20:50 09/27/18 20:50 Recent Labs: Laboratory Last Values WBC 7.3 Th/cmm (4.8-10.8) 09/27/18 20:50 RBC 4.61 Mil/cmm (4.30-5.70) 09/27/18 20:50 Hgb 13.9 gm/dL (12-16) 09/27/18 20:50 Hct 41.9 % (41.0-60) 09/27/18 20:50 MCV 91.0 fl (80-99) 09/27/18 20:50 MCH 30.2 pg (26.0-30.0) H 09/27/18 20:50 MCHC Differential 33.2 pg (28.0-36.0) 09/27/18 20:50 RDW 13.4 % (11.5-20.0) 09/27/18 20:50 Plt Count 235 Th/cmm (150-400) 09/27/18 20:50 MPV 6.9 fl 09/27/18 20:50 Neutrophils % 60.4 % (40.0-80.0) 09/27/18 20:50 Lymphocytes % 25.0 % (20.0-50.0) 09/27/18 20:50 Monocytes % 9.6 % (2.0-10.0) 09/27/18 20:50 Eosinophils % 4.9 % (0.0-5.0) 09/27/18 20:50 Basophils % 0.1 % (0.0-2.0) 09/27/18 20:50 Sodium 137 mEq/L (136-145) 09/27/18 20:50 Potassium 3.3 mEq/L (3.5-5.1) L 09/27/18 20:50 Chloride 103 mEq/L (98-107) 09/27/18 20:50 Carbon Dioxide 28.4 mEq/L (21.0-31.0) 09/27/18 20:50 Anion Gap 8.9 (7.0-16.0) 09/27/18 20:50 BUN 18 mg/dL (7-25) 09/27/18 20:50 Creatinine 1.0 mg/dL (0.7-1.3) 09/27/18 20:50 Est GFR ( Amer) > 60.0 ml/min (>90) 09/27/18 20:50 Est GFR (Non-Af Amer) > 60.0 ml/min 09/27/18 20:50 BUN/Creatinine Ratio 18.0 09/27/18 20:50 Glucose 100 mg/dL (70-105) 09/27/18 20:50 Calcium 9.4 mg/dL (8.6-10.3) 09/27/18 20:50 Total Bilirubin 0.2 mg/dL (0.3-1.0) L 09/27/18 20:50 AST 9 U/L (13-39) L 09/27/18 20:50 ALT 16 U/L (7-52) 09/27/18 20:50 Alkaline Phosphatase 70 U/L (34-104) 09/27/18 20:50 Troponin I < 0.01 ng/mL (0.01-0.05) L 09/27/18 20:50 B-Natriuretic Peptide 7.7 pg/mL (5.0-100.0) 09/27/18 20:50 Total Protein 7.1 gm/dL (6.0-8.3) 09/27/18 20:50 Albumin 4.1 gm/dL (4.2-5.5) L 09/27/18 20:50 Globulin 3.0 gm/dL 09/27/18 20:50 Albumin/Globulin Ratio 1.4 (1.0-1.8) 09/27/18 20:50 Triglycerides 114 mg/dL (<150) 09/28/18 06:10 Cholesterol 142 mg/dL (<200) 09/28/18 06:10 LDL Cholesterol Direct 87 mg/dL (75-193) 09/28/18 06:10 HDL Cholesterol 44 mg/dL (23-92) 09/28/18 06:10 TSH 2.17 uIU/ml (0.34-5.60) 09/27/18 20:50 Urine Source RANDOM 10/06/18 11:45 Urine Color YELLOW 10/06/18 11:45 Urine Clarity CLEAR (CLEAR) 10/06/18 11:45 Urine pH 6.5 (4.6 - 8.0) 10/06/18 11:45 Ur Specific [place] 1.010 (1.005-1.030) 10/06/18 11:45 Urine Protein NEGATIVE mg/dL (NEGATIVE) 10/06/18 11:45 Urine Glucose (UA) NEGATIVE mg/dL (NEGATIVE) 10/06/18 11:45 Urine Ketones NEGATIVE mg/dL (NEGATIVE) 10/06/18 11:45 Urine Blood NEGATIVE (NEGATIVE) 10/06/18 11:45 Urine Nitrate NEGATIVE (NEGATIVE) 10/06/18 11:45 Urine Bilirubin NEGATIVE (NEGATIVE) 10/06/18 11:45 Urine Urobilinogen 0.2 E.U./dL (0.2 - 1.0) 10/06/18 11:45 Ur Leukocyte Esterase NEGATIVE (NEGATIVE) 10/06/18 11:45 Urine RBC NONE SEEN /hpf (0-5) 10/06/18 11:45 Urine WBC 0-2 /hpf (0-5) 10/06/18 11:45 Ur Epithelial Cells RARE /lpf (FEW) 10/06/18 11:45 Urine Bacteria RARE /hpf (NONE SEEN) 10/06/18 11:45 Urine Sperm FEW /hpf (NONE SEEN) 10/06/18 11:45 [place] 0.62 mmol/L (0.5-1.0) 09/28/18 06:10 - Physical Exam Vitals and I&O: Vital Signs Temp 97.9 F 10/10/18 06:14 Pulse 89 10/10/18 06:14 Resp 20 10/10/18 06:14 BP 131/72 10/10/18 06:14 Pulse Ox 97 10/10/18 06:14 Intake & Output 10/09/18 10/10/18 10/10/18 18:59 06:59 18:59 Intake Total 120 Balance 120 Intake: Oral 120 Other: # Voids 2 Active Medications: Current Medications Atorvastatin Calcium (Lipitor) 10 mg PO HS [facility]; Protocol Stop: 11/28/18 20:59 Last Admin: 10/09/18 21:13 Dose: 10 mg Docusate Sodium (Colace) 250 mg PO DAILY LUDWIG Stop: 11/28/18 08:59 Last Admin: 10/10/18 08:41 Dose: 250 mg Escitalopram Oxalate (Lexapro) 10 mg PO DAILY [facility]WIG; Protocol Stop: 12/04/18 08:59 Last Admin: 10/10/18 08:41 Dose: 10 mg Fish Oil ([place] 3) 1,000 mg PO DAILY LUDWIG Stop: 11/28/18 08:59 Last Admin: 10/10/18 08:41 Dose: 1,000 mg Levothyroxine Sodium (Synthroid) 0.112 mg PO QDAC LUDWIG Stop: 11/29/18 07:29 Last Admin: 10/10/18 06:47 Dose: 0.112 mg [place] Carbonate (Eskalith) 300 mg PO BID LUDWIG; Protocol Stop: 11/27/18 08:59 Last Admin: 10/10/18 08:42 Dose: 300 mg Neomycin/Polymyxin/Bacitracin (Triple Antibiotic Pkt) 1 pkt TP DAILY LUDWIG Stop: 12/03/18 08:59 Last Admin: 10/10/18 08:41 Dose: 1 pkt Olanzapine (Zyprexa) 10 mg PO TID [facility]UDWIG; Protocol Stop: 11/27/18 08:59 Last Admin: 10/10/18 08:41 Dose: 10 mg Risperidone (Risperdal) 3 mg PO BID LUDWIG; Protocol Stop: 11/27/18 08:59 Last Admin: 10/10/18 08:42 Dose: 3 mg General: alert HEENT: NC/AT Neck: Supple Lungs: CTAB Abdomen: soft, non-tender Extremities: clear Neurological: no change Internal Medicine Assmt/Plan - Assessment Assessment: hypokalemia hyperlipidemia hypothyrodism depression psychosis - Plan Plan: as per order sheet as per psych will monitor Nutritional Asmnt/Malnutr-PDOC - Dietary Evaluation Malnutrition Findings (Please click <Entered> for more info): Nutritional Asmnt/Malnutrition Start: 09/30/18 14: 22 Text: Status: Complete Freq: Protocol: Document 09/30/18 14:22 CAL (Rec: 09/30/18 14:45 CAL [email or web address]) Nutritional Asmnt/Malnutrition Patient General Information Nutritional Screening Moderate Risk Diagnosis psychosis, schizophrenia Pertinent Medical Hx/Surgical Hx dyslipidemia, hypothyroidism, depression, schizophrenia Subjective Information Spoke w/ pt who states his food is good and has no preferences. Pt was alert and oriented. Nursing noted PO intake: 100%. Current Diet Order/ Nutrition Support regular, low cholesterol Pertinent Medications lipitor, colace, omega 3, synthroid, risperdal Pertinent Labs 13/05: K 3.3, Alb 4.1, glucose 100 Nutritional Hx/Data Height 1.63 m Height (Calculated Centimeters) 162.6 Current Weight (lbs) 68.039 kg Weight (Calculated Kilograms) 68.0 Weight (Calculated Grams) 37683.9 [place] Body Weight 130 lb Body Mass Index (BMI) 25.7 Weight Status Overweight GI Symptoms GI Symptoms None Last BM 09/29 Difficult in: None Food Allergies No Skin Integrity/Comment: intact, seth 20 Current %PO Good (75-100%) Estimated Nutritional Goals BEE in Kcals: Using Current wt Calories/Kcals/Kg 23-27 Kcals Calculated 9637-3168 Protein: Using Current wt Protein g/k.8 Protein Calculated 68 g Fluid: ml 7792-8492 (1 ml/kcal) Nutritional Problem No current Nutrition Prob Problem no nutrition dx at this time Malnutrition Alert Is there a minimum of two criteria No selected? Query Text:Check all the applicable criteria. A minimum of two criteria are recommended for diagnosis of either severe or non-severe malnutrition. Malnutrition Related to Morbid Obesity Malnutrition related to morbid obesity No Intervention/Recommendation Comments 1. Continue with regular, low cholesterol diet as ordered 2. Monitor PO intake, wt, labs and skin integrity 3. F/U as low risk in 7 days, 10/07 Expected Outcomes/Goals Expected Outcomes/Goals 1. PO intake to meet at least 75% of all meals 2. Wt stability, skin to remain intact, and nutrition related labs to approach normal limits Reviewed by Lucy Quintanilla RD
--- NOTE | 2018-10-10 19:52 | Discharge Summary ---
DATE OF DISCHARGE: 10/10/2018 PATIENT'S AGE: 62. SEX: Male. PHYSICIAN: Dr. Brand. FINAL DIAGNOSIS/PRIMARY DIAGNOSIS: Unspecified psychosis. REASON FOR HOSPITALIZATION: The patient was admitted to the hospital because of increased agitation, irritability, and also behavioral issues in [place] where he lives. The patient has been depressed and was having some sexual inappropriate behavior and the patient was transferred to the hospital. HOSPITAL COURSE: The patient continued to be anxious and irritable mood. The patient was monitored closely. The patient also continued to take Lexapro dose of 10 mg every day, lithium 300 mg twice a day, Zyprexa 10 mg 3 times a day, Risperdal was added and dose adjusted to 3 mg twice a day. Gradually, the patient's affect was brighter. The patient was less depressed and less anxious. The patient also was not having any sexual inappropriate behavior. The patient was discharged from the hospital. The patient went back to [facility]. Physical exam of the patient was monitored closely and the patient had no major medical problems. AFTER DISCHARGE PLANS: The patient was discharged from the hospital back to [place] with plan to follow him up there. EXPECTED OUTCOME AFTER DISCHARGE: Fair if the patient continues to take his psychotropic medications and follow up with discharge plans. [facility]# [id number]
== END 2018-10-10 17:15 | DRG 885 ==
LOC: ER 19:59 → GERO 22:30
PROVIDERS: ADMIT Psychiatry & Neurology Psychiatry; ATTEND Psychiatry & Neurology Psychiatry
DX: F25.0 Schizoaffective disorder, bipolar type (principal); E78.5 Hyperlipidemia, unspecified; E03.9 Hypothyroidism, unspecified; E87.6 Hypokalemia; F32.9 Major depressive disorder, single episode, unspecified; F29 Unspecified psychosis not due to a substance or known physiological condition; E78.00 Pure hypercholesterolemia, unspecified; Z79.899 Other long term (current) drug therapy
CPT/HCPCS: 36415-UA; 71045-TC; 80053-TC; 80061-TC; 80178-TC; 81001-TC; 83036-90; 83880-TC; 84443-TC; 84484-TC; 85025-TC; 93005; J1200; J1630; J2060